=== PATIENT | female | born 1980 | race Caucasian/White ===

== ENCOUNTER 2025-05-27 18:21 | Emergency (ER) | payer BC, SELFPAY ==
--- OUTSIDE RECORDS SUMMARY | 2023-07-17 04:05 | XMS_ITS | Continuity of Care Document ---
Author Organization [facility] Address [address] [address] [place] [address] Phone Care Team Providers Care Speech And Drama Teacher Name Role Phone Jen Hyatt MD Unavailable Unavailable Allergies, Adverse Reactions, Alerts Substance Reaction Status Criticality amoxicillin Active No Information Medications Medication Instructions Dosage Effective Dates (start - stop) Status Comments buspirone 10 mg tablet take 1 tablet by oral route 2 times every day 10 MG - Active doxycycline hyclate 50 mg tablet take 1 tablet by oral route 2 times every day 50 MG - Active lorazepam 1 mg tablet take 1 tablet by o ral route 3 times every day as needed 1 MG - Active spironolactone 50 mg tablet take 1 tablet by oral route every day 50 MG - Active Synthroid 100 mcg tablet take 1 tablet by oral route every day 100 MCG - Active liothyronine 5 mcg tablet take 1 tablet by oral route every day 5 MCG - Active lamotrigine 150 mg tablet take 1 tablet by oral route 2 times every day 150 MG - Active trazodone 150 mg tablet take 1 tablet by oral route every day 150 MG - Active Dulcolax (bisacodyl) 5 mg tablet,delayed release take 1 tablet by oral route every day as needed 5 MG - Active Procedures Procedure Date Ugi Endo; W/bx 1/mx Level Iv-surg Path Gross/micro 23 New Level 4 Advance Directives Directive Yes / No Effective Date File Name No Information Encounters Encounter Description Practice Location Reason(s) For Visit Diagnoses Date Provider Providers Copied on Encounter [facility], [address] [address], [place], [place], [id number], [place] tel:[phone] [facility] No Information 4 Olena Li. [address] [facility] [address], [place], [place], [id number] , [place]. tel: [phone] [facility], [address] [address], [place], [place], [id number], [place] tel:[phone] [facility] GI Symptoms or Concerns (chief complaint) HeartburnOther specified abnormal immunological findings in serumUnspecified abdominal painHeartburnHeartb urnHeartburn 3 Damien Queen. [address], [facility] [address], [place], [place], [address] , [place]. tel: [phone] Referring Provider: Referral Self, USE FOR SELF REFERRALS. New Level 4 [facility], [address] [address], [place], [place], [id number], [place] tel:[phone] [facility] GI Symptoms or Concerns (chief complaint) HeartburnNauseaAbdo aleshia bloatingElevated anti-tissue transglutaminase (tTG) IgA level 3 Olena Li. [address], [facility] [address], [place], [place], [address] , [place]. tel: [phone] Referring Provider: Referral Self, USE FOR SELF REFERRALS. [facility], [address] [address], [place], [place], [address], [place] tel:[phone] [facility] GI Symptoms or Concerns (chief complaint) No Information 3 Olena Li. [address], [place], [place], [address] , [place]. tel: [phone] [facility], [address] [address], [place], [place], [address], [place] tel:[phone] [facility] No Information 3 Yasmany Khan. [address], [facility] [address], [facility] [place], [id number] , [place]. tel: [phone] Family History Family Member Type Diagnosis Age At Onset Mother Problem Hypertension Father Problem Alive and well Father Problem Hypercholesterolemia Father Problem Cardio pulmonary, heart issu es Mother Problem Heart issues Mother Problem (finding) Diverticular disease Mother Problem (finding) Alcoholism Mother Problem Alive and well Immunizations Vaccine Date Status Comments SARS-COV-2 (COVID-19) vaccin e, mRNA, spike protein, LNP, bivalent, preservative free, 30 mcg/0.3 mL dose, manpreet-sucrose formulation administered Note: [facility] bi-direct ional interface ; Source: Other Registry Afluria Qd administered Note: [facility] bi-directional interface ; Source: Other Registry SARS-COV-2 (COVID-19) vaccin e, mRNA, spike protein, LNP, preservative free, 30 mcg/0.3mL dose administered Note: [facility] bi-direct ional interface ; Source: Other Registry SARS-COV-2 (COVID-19) vaccin e, mRNA, spike protein, LNP, preservative free, 100 mcg/0.5mL dose or 50 mcg/0.25mL dose administered Note: [facility] bi -directional interface ; Source: Other Registry SARS-COV-2 (COVID-19) vaccin e, mRNA, spike protein, LNP, preservative free, 100 mcg/0.5mL dose or 50 mcg/0.25mL dose administered Note: [facility] bi -directional interface ; Source: Other Registry Afluria Qd administered Note: [facility] bi-directional interface ; Source: Other Registry Afluria Qd administered Note: [facility] bi-directional interface ; Source: Other Registry influenza virus vaccine, unspecified formulation administered Note: [facility] bi-di rectional interface ; Source: Other Registry Afluria Qd administered Note: [facility] bi-directional interface ; Source: Other Registry tetanus toxoid, reduced diphtheria toxoid, and acellular pertussis vaccine, adsorbed administered Note: [facility] b i-directional interface ; Source: Other Registry Influenza, injectable,quadrivalent, preservative free, pediatric administered Note: [facility] bi-directional interface ; Source: Other Registry tetanus toxoid, reduced diphtheria toxoid, and acellular pertussis vaccine, adsorbed administered Note: [facility] b i-directional interface ; Source: Other Registry Influenza, seasonal, injectable administe red Note: [facility] bi- directional interface ; Source: Other Registry influenza virus vaccine, unspecified formulation administered Note: [facility] bi-di rectional interface ; Source: Other Registry influenza virus vaccine, unspecified formulation administered Note: [facility] bi-di rectional interface ; Source: Other Registry Novel [id number], all formulations administered Note: [facility] bi-direct ional interface ; Source: Other Registry Influenza, seasonal, injecta ble, preservative free administered Note: [facility] bi-direct ional interface ; Source: Other Registry measles, mumps and rubella v irus vaccine administered Note: [facility] bi-direct ional interface ; Source: Other Registry diphtheria, tetanus toxoids and pertussis vaccine administered Note: [facility] bi-direct ional interface ; Source: Other Registry diphtheria, tetanus toxoids and pertussis vaccine administered Note: [facility] bi-direct ional interface ; Source: Other Registry measles, mumps and rubella v irus vaccine administered Note: [facility] bi-direct ional interface ; Source: Other Registry diphtheria, tetanus toxoids and pertussis vaccine administered Note: [facility] bi-direct ional interface ; Source: Other Registry diphtheria, tetanus toxoids and pertussis vaccine administered Note: [facility] bi-direct ional interface ; Source: Other Registry diphtheria, tetanus toxoids and pertussis vaccine administered Note: [facility] bi-direct ional interface ; Source: Other Registry Payers Payer name Insurance type Covered democrat ID Authoriza tion(s) [facility] [id number] Social History Type Description Quantity Date Captured Comments Sex Female Smoking Status No Information Chief Complaint And Reason For Visit No Information Reason For Referral Reason For Referral No Information History Of Present Illness Encounter Date Complaint History Of Prese nt Illness GI Symptoms or Concerns GI Symptoms or Concerns This is a 42-year-old female who presents to GI virtual clinic for evaluation of heartburn, reflux, and abdominal bloating.Prior to our visit, I confirmed the patient is in a private location and obtained her consent to proceed with the visit.The patient relates that for the past 3-4 months, she has been dealing with progressive reflux, nonresponsive to emwg-jct-xsyrqtg reflux medications. This has started to occur regardless of what she eats, though certain foods such as spicy and acidic foods seem to be worse than others. She has also been dealing with progressive abdominal bloating and overall fatigue and dizziness along the same time period. She does take stool softeners to help with bowel movements in order to have a bowel movement daily which are nonmelenic and nonbloody. 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 Our plan based on our discussion today is as follows:-We will schedule an upper endoscopy with biopsies of your esophagus, stomach and small bowel for your symptoms.-We can start Omeprazole 40mg daily after your procedure for 60 days to see how this impacts your symptoms.-Return to GI clinic in 3 months or sooner as needed. Related to Heartburn Gastroesophageal Reflux Disease Related to Heartburn Assessments Type Assessment Date No Information Patient Care Teams Name Effective Dates (start - stop) Status Members No Information
--- OUTSIDE RECORDS SUMMARY | 2025-05-27 18:23 | XMS_ITS | Encounter Summary ---
Author Organization [employer] [facility] [facility] Address [address], [place] [address] Care Team Providers Care Dimensional Engineer Name Role Phone Unassigned, Provider Primary Care Provider Unava ilable Encounter Details DateTypeDepartmentCare Team (Latest Contact Info)Euxyygbsfuo65/10/2025E-Visit [address] [facility]. [place], [place] [id number] Gena Enriquez [facility] [address] [place], [place] [phone] Social History Tobacco UseTypesPacks/DayYears UsedDateSmoking Tobacco: NeverSmokeless Tobacco: NeverAlcohol UseStandard Drinks/WeekCommentsYes1 (1 standard drink = 0.6 oz pure alcohol)1 drink, once every couple of weeksCommentsNoSex and Gender InformationValueDate RecordedSex Assigned at BirthNot on fileLegal SexFemale 03/12/2012 4:55 AM CDTGender IdentityNot on fileSexual OrientationNot on file OccupationIndustryJob Start DateJob End DateConsultantNot on fileNot on fileNot on filedocumented as of this encounter Plan of Treatment Not on file documented as of this encounter Visit Diagnoses Not on filedocumented in this encounter Care Teams Team MemberRelationshipSpecialtyStart DateEnd Date Unassigned, Provider [address] [place] [id number] PCP - General09/07/22documented as of this encounter
--- OUTSIDE RECORDS SUMMARY | 2025-05-27 18:23 | XMS_ITS | Data Portability ---
Author Organization [place] [facility] [place] Address [address] [place] [address] Care Team Providers Care Shoe Stamper Name Role Phone ABRAHAMKISHA SOLORZANO Primary Care Provider Assessment Encounter Date Assessment Date Assessment LastModified by Organization Details LastModified Time 04/28/2024 04/28/2024 Time spent reviewing the patient s medical record, diagnostic studies, performing a focused history and physical exam, educating the patient regarding the natural history of disease as it pertains to the patient, discussing treatment options and alternatives, medical decision making, and chartin-39 minutes. [email or web address] Not available 04/28/2024 15:06:19 Plan of Treatment Reminders Order DateSubmit DateProviderLast Modified ByOrganization DetailsLastio Modified TimeDetailsAppointmentsNone recorded.LabNone recorded.ReferralNone recorded. ProceduresNone recorded.SurgeriesNone recorded.ImagingNone recorded.Medication OrdersNone recorded. Patient TargetsNo targets recorded. Patient Instructions Encounter Date Encounter Id Patient Instructions Last Modified By Organization Details Last Modified Time 04/28/2024 [id number] PROCEDURE RECOMM ENDATIONS 1. Endovenous radiofrequency ablation of the left great saphenous vein (53049) 2. Ultrasound guided foam sclerotherapy of the residual incompetent tributaries and varicosities greater than 3.0mm of the left leg (07323, 18879) - 2 sessions This patient has multiple areas of tributary veins that need treatment (4 tributaries measured/leg), which requires more than one session of sclerotherapy, as documented above in the procedure recommendations.cjakcmz3Lfe zxyhhnnze47/26/2024 15:08:09 Reason for Referral None Reported. Procedures Surgical History Date Name Laterality Status Provider Name and Address Organization Details Recorded Time 03/30/2025 PVC - Ultrasound Guided Scleroth erapy completedChristracie [facility] Rbmxnai6303/30/2025 11:16:22 03/02/2025PVC - EVRFA: Single VeincompletJuan Hernandez MD [address], [place], [address], [facility] Fmtfjms5303/02/2025 11:15:54ColonoscopycompletJuan Hernandez MD [address], [place], [address], [facility] Uigqzum9103/17/2024 13:16:01HysterectomycompletedElizabeedward Hernandez MD [address], [place], [address], [facility] Lehzmpj4603/17/2024 13:16:01Plastic surgerycomTony Hernandez MD [address], [place], [address], [facility] Xeckmku7703/17/2024 13:16:01Hand SurgerycomTony Hernandez MD [address], [place], [address], [facility] Zvbpeqp9203/17/2024 13:16:01 Imaging Results None recorded. Procedure Notes None recorded. Medical Equipment None Reported. Allergies Allergen ID Allergen Name Allergen Category Reaction Reaction Severity Criticality Documentation Date Start Date Code Code System Note Provider Name and Address Organization Details Recorded Time 16931 amoxicillin medication Not available Not available Not /30/3730209LwHhclBdkhtmtfn Hoven null, [facility] Rwivdqd9503/02/2025 10:48:31 Medications Name Sig Start Date Stop Date Status Note LastModified by Organization Details LastModified Time cyclobenzaprine 10 mg tablet TAKE 1 TABLET BY AL UT AT BEDTIME NEEDED.* activeNot AvailableNot AvailableNot Availablelamotrigine 150 mg tabletTAKE 1 TABLET TWICE A DAYactiveNot AvailableNot AvailableNot Availableclindamycin HCl 300 mg capsuleTAKE FIRST DOSE TONIGHT THEN TAKE ONE CAPSULE BY MOUTH EVERY 8 HOURS UNTIL GONE03/16/2024ompletedNot AvailableNot AvailableNot Available hydrocodone 5 mg-acetaminophen 325 mg tabletTAKE ONE TO TWO TABLETS BY MOUTH EVERY 4 TO 6 HOURS NEEDED FOR PAIN TAKE WITH FOOD TO AVOID NAUSEA MAX DAILY DOSE OF 8 ESKMLWR0103/16/2024ompletedNot AvailableNot AvailableNot Available tretinoin 0.025 % topical creamAPPLY A THIN LAYER TO FACE AT NIGHT, APPLY ON DRY SKIN AND FOLLOW WITH MOISTURIZER, BEGIN WITH 2-3 NIGHTS PER WEEK AND INCREASE TOLERATEDactiveNot AvailableNot AvailableNot Availablemethylphenidate 20 mg tabletTAKE ONE TABLET BY MOUTH TWICE A DAY FOR 30 DAYS.activeNot AvailableNot AvailableNot Availablemeloxicam 15 mg tabletTAKE ONE TABLET BY MOUTH ONE TIME DAILY WITH FOOD*activeNot AvailableNot AvailableNot Availablemethylphenidate 5 mg pqkysm3303/16/2024ompletedNot AvailableNot AvailableNot AvailableSynthroid 100 mcg tabletTAKE 1 TABLET DAILYactiveNot AvailableNot AvailableNot Available spironolactone 100 mg tabletTAKE 1 TABLET DAILYactiveNot AvailableNot Available Not Availableestradiol 0.1 mg/24 hr semiweekly transdermal patchPlace 1 patch onto the skin twice a week*activeNot AvailableNot AvailableNot Available estradiol 0.05 mg/24 hr semiweekly transdermal patchApply 1 patch onto the skin twice a week*activeNot AvailableNot AvailableNot Availableomeprazole 40 mg capsule,delayed releaseTAKE ONE CAPSULE BY MOUTH EVERY DAY BEFORE A MEAL 03/16/2024ompletedNot AvailableNot AvailableNot Availableliothyronine 5 mcg tabletTake 2 tablets by MOUTH 1 time per day*activeNot AvailableNot AvailableNot Availabledoxycycline monohydrate 50 mg capsuleactiveNot AvailableNot Available Not Availablemethocarbamol 750 mg tabletTAKE 1 TABLET by mouth 3 TIMES DAILY.* activeNot AvailableNot AvailableNot Availabletrazodone 150 mg tabletTAKE 2 TABLETS AT BEDTIMEactiveNot AvailableNot AvailableNot Availablebuspirone 10 mg tabletTAKE 2 TABLETS BY MOUTH 2 TIMES A DAY*activeNot AvailableNot AvailableNot Availableprogesterone micronized 200 mg capsuleTAKE ONE CAPSULE BY MOUTH ONE TIME DAILY*activeNot AvailableNot AvailableNot Availableclobetasol 0.05 % topical ointmentAPPLY TWICE DAILY TO SPOTS FOR TWO WEEKS. TAKE ONE WEEK BREAK. REPEAT NEEDED FOR FLARES.activeNot AvailableNot AvailableNot Available methylprednisolone 4 mg tablets in a dose packFOLLOW PACKAGE INSTRUCTIONS. TAKE 6 TABLETS BY MOUTH ON DAY 1, 5 TABS ON DAY 2, 4 TABS ON DAY 3, 3 TABS ON DAY 4, 2 TABS ON DAY 5, 1 TAB ON DAY 6.*activeNot AvailableNot AvailableNot Available propranolol 20 mg tabletTAKE 1-3 TABLETS THREE TIMES DAILY NEEDED FOR ANXIETY. MONITOR BLOOD PRESSURE PERIODICALLY, HOLDDOSE IF LESS THAN 90/60active Not AvailableNot AvailableNot Availableondansetron 4 mg disintegrating tablet DISSOLVE ONE TABLET UNDER THE TONGUE EVERY 8 HOURS03/16/2024ompletedNot AvailableNot AvailableNot Availabletobramycin 0.3 %-dexamethasone 0.1 % eye drops,suspensionINSTILL 1 DROP INTO BOTH EYES THREE TIMES DAILY FOR 1 WEEK* activeNot AvailableNot AvailableNot AvailableLaxative (bisacodyl) 5 mg tablet,delayed releaseTAKE 2 DAYS PRIOR TO EXAM TAKE 2 TABLETS AT 4PM. ONE DAY PRIOR TO EXAM TAKE 2 TABLETS AT 4PMactiveNot AvailableNot AvailableNot Available GaviLyte-G 236 gram-22.74 gram-6.74 gram-5.86 gram oral solutionTWO DAYS BEFORE EXAM, FILL 1ST CONTAINER, SHAKE UNTIL MIXED. AT 5PM DRINK 8OZ GLASS EVERY 10-15 MINUTES UNTIL 1/2 OF 1ST CONTAINER IS EMPTY.03/16/2024ompletedNot AvailableNot AvailableNot Available Vitals None Recorded Social History Question Answer Notes LastModified by Organization D etails LastModified Time Tobacco Smoking Status Never Smoker Marely Hernandez MD [address] [place], [address], [place] [facility] Nohjvmt4503/17/2024 13:14:52How Many Times Per Week Do You Exercise?3-4 Times Per Nfufiunpia9Dnnhjbcpbxz not mskckcolv02/15/2024 Sex: Unknown Functional Status Question Answer Note LastModified by Organization D etails LastModified Time What is your level of alcohol consumption? 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 Family History Nothing Reported. Medical History Condition Response Anxiety Disorder Y Hypothyroidism Y High Cholesterol Y Gynecological History Statement/Question Response How many childrens do you have? 2 Number of Miscarriages 0 Number of Pregnancies 2 Are you or planning to become p regnant? N Are you ? N Obstetrics History GPAL:G 0 P 0 0 0 0 Past Encounters Encounter ID Performer Location Encounter Start Date Encounter Closed Date Diagnosis/Indication Diagnosis SNOMED-CT Code Diagnosis ICD10 Code Diagnosis IMO Codes Diagnosis Note [id number] Marely Hernandez MD [address] [address] 03/17/2024 12:37:09 03/26/2024 04:04:54 Pain co-occurrent and due to varicose veins of left leg [id number] I83.812 DUPLEX ULTRASOUND FINDINGS: Spectral doppler analysis shows abnormal reflux (>500msec) in the left great saphenous vein and multiple left tributary veins. The deep veins are patent with normal compressibility and augmentation. Left deep venous insufficiency is absent. There is adequate venous capacity of the deep system. There is no significant tortuosity or aneurysm of the refluxing saphenousveins which would impede catheter advancement. [id number] Hernandez MD[address] [place],[address] [address] 03/17/2024 12:37:181 11:53:26Pain co-occurrent and due to varicose veins of left [id number] DUPLEX ULTRASOUND FINDINGS: Spectral doppler analysis shows abnormal reflux (>500msec) in the left great saphenous vein and multiple left tributary veins. The deep veins are patent with normal compressibility and augmentation. Left deep venous insufficiency is absent. There is adequate venous capacity of the deep system. There is no significant tortuosity or aneurysm of the refluxing saphenousveins which would impede catheter advancement. ASSESSMENT: 1)Left lower extremity superficial chronic venous insufficiency of the great saphenous vein and tributary veins with pain and inflammation affecting activities of daily living. CEAP 3 VCSS 8 2) Normal deep venous system without DVT 3) The patient has progression of symptoms despite conservative measures including: avoiding long periods of sitting/standing, regular daily exercise including moderate walking, weight control, OTC analgesics and leg elevation. PLAN: Begin 6 week trial of conservative therapy with the addition of OTC analgesics and GCS 20-30mm Hg. GCS Rx provided today. If symptoms persist, proceed with the treatment plan including the following:endovenous radiofrequency ablation of saphenous vein(s), ultrasound guided foam sclerotherapy of tributary veins. [id number] Montano [address] [place] [address] 04/28/2024 15:01:3812/08/2023 04:08:39Pain co-occurrent and due to varicose veins of left [id number] DUPLEX ULTRASOUND FINDINGS: Spectral doppler analysis shows abnormal reflux (>500msec) in the left GSV and multiple left tributary veins. The deep veins are patent with normal compressibility and augmentation. Deep vein reflux in the left proximal FV. There is no significant tortuosity or aneurysm of the refluxing saphenous veins which would impede catheter advancement. [id number] Montano [address] [place] [address] 04/28/2024 15:01:4412/07/2023 23:09:46Pain co-occurrent and due to varicose veins of left [id number] DUPLEX ULTRASOUND FINDINGS: Spectral doppler analysis shows abnormal reflux (>500msec) in the left GSV and multiple left tributary veins. The deep veins are patent with normal compressibility and augmentation. Deep vein reflux in the left proximal FV. There is no significant tortuosity or aneurysm of the refluxing saphenous veins which would impede catheter advancement. ASSESSMENT:1)Left lower extremity superficial chronic venous insufficiency of the GSV and tributary veins withpain and inflammation affecting activities of daily living. CEAP 3, VCSS 92)Right lower extremity asymptomatic and not examined today.3) Normal deep venous system without DVT4) The patient has progression of symptoms despite conservative measures including: use of GCS class II or higher for more than 6 weeks, avoiding long periods of sitting/standing, regular daily exercise including moderate walking, weight control, OTC analgesics and leg elevation. PLAN:1) Proceed with the treatment plan detailed below.[id number] Hernandez MDColerain [address] [place] [address] 03/02/2025 10:38:34003/02/2025 12:17:21Pain co-occurrent and due to varicose veins of left [id number] [id number] Fragosoadvent[facility] [address] [place] [address] 03/30/2025 10:57:5503/30/2025 14:30:33Pain co-occurrent and due to varicose veins of left [id number] [id number] Health Concerns Section Related Observation LastModified by Organization Detai ls LastModified Time None Recorded Concern Status LastModified by Organization Details LastModified Time None Recorded Advance Directives Directive None Recorded Payers Insurance Date Sequence Insurance Name Policy Number Policy Gomes Covered Member ID Gomes Member ID Guarantor Name 03/27/2025 1 [place] [id number] Yudy bae [id number] Yudy Matos Notes Date Note Type Note Provider Name and Address Organization Details Recorded Time 03/17/20 24 text/htm l PVC (Q4U) InitialReported by PatientHPIFor i have had symptoms, patient reportsmore than 1 year. For have you ever experienced any of the following symptoms?, patient reportspain,aching,tired legs/fatigue,heaviness,burnin g,numbness/tingling,swelling, difficulty healing wounds/ulcers,spider veins, andbulging veins. For when do the symptoms occur?, patient reportssittingandstanding up. For what activities of daily living do the symptoms affect?, patient reportswork. For please select the location of your concern, patient reportsleft leg: ankle/foot. For what relieves your symptoms?, patient reportsleg elevation. For do you wear compression stockings to relieve your symptoms?, patient reportsyes. For how long have you worn compression stockings?, patient reportsmore than 3 months. For have you ever been prescribed medical grade compression stockings?, patient reportsno. For indicate which prior vein treatments you have had, patient reportsother___. For have you ever been diagnosed with the following?, patient reportsnone. Marely Hernandez MD [address] [place], [address], [facility] 03/25/2024 10:05:39 03/17/2024 text/html The patient is a 43yo female who presents with complaints of Left lower extremity varicose veins and increasing symptoms for the past more than 1 year. The patient denies previous treatment for chronic venous disease. Symptoms include: pain, aching, tired legs, heavy legs, fatigue, itching, burning, recurring swelling, spider veins, surface veins, difficulty healing wounds, numbness and tingling. There is no history of DVT, SVT, ulceration, cellulitis or phleborrhagia. Symptom location: Left, ankle/leg, Symptom severity:7/10; moderately severe Symptoms occur with: prolonged sitting and standing, and are worse later in the day. ADLs affected by symptoms: -Work: Needs to take frequent breaks to walk and/or elevate legs. Conservative measures implemented without relief of symptoms: -avoidance of prolonged periods of sitting or standing, -regular exercise including moderate daily walking, -leg elevation, -weight control, -GCS 20-30 mmHg OTC only Rx provided today. Cyanoacrylate Adhesive Ablation screening: -Autoimmune conditions: Yes Marely Hernandez MD [address] [place], [address], [facility] Lwacqqp1803/25/2024 10:04:16106/28/2023text/html The patient is a 43yo female who presents with complaints of Left lower extremity varicose veins and increasing symptoms for the past more than 1 year. The patient denies previous treatment for chronic venous disease. The patient presents after a 6 week trial of conservative therapy including: daily exercise including moderate walking, weight control, leg elevation, OTC analgesic (eg NSAID) use prn and Rx GCS. Thepatient reports minimal relief of symptoms with these measures. Symptoms include: pain, aching, tired legs, heavy legs, fatigue, itching, burning, recurring swelling, spider veins, surface veins, difficulty healing wounds, numbness and tingling. There is no history of DVT, SVT, ulceration, cellulitis or phleborrhagia. Symptom location: Left, ankle/leg,Symptom severity:7/10; moderately severe Symptoms occur with: prolonged sitting and standing, and are worse later in the day. ADLs affected by symptoms:-Work: Needs to take frequent breaks to walk and/or elevate legs. Conservative measures implemented without relief of symptoms:-avoidance of prolonged periods of sitting or standing,-regular exercise including moderate daily walking,-leg elevation,-weight control,-GCS 20-30 mmHg more than 6 wks Rx provided at consultation. Cyanoacrylate Adhesive Ablation screening:-Autoimmune conditions: Yes Marely Hernandez MD [address], [place], [address], [place] [facility] Jtihcyf7604/28/2024 16:09:20 OBGyn Episode No OBEpisode recorded.
--- OUTSIDE RECORDS SUMMARY | 2025-05-27 18:23 | XMS_ITS | Clinical Summary ---
Author Organization [facility] Address [address], [place] [address] Care Team Providers Care Carriage Feeder Name Role Phone Unassigned, Provider Primary Care Provider Unava ilable Source Comments You are receiving this document as you are listed as the primary care provider,follow-up provider, or the patient has been referred to you for consultation.This is in compliance with the Medicare andMedicaid EHR Incentive Program,which states Providers who transition their patient to another setting of careor provider of care or refers their patient to another provider of care shouldprovide summary care record for each transition of care or referral. [employer] Allergies Active AllergyReactionsCriticalityNoted LexhCncrcbxdItpaiuofcquNykc66/19/2003 PN: LW Reaction: Rash, Generalized Medications MedicationSigDispense QuantityRefillsLast FilledStart DateEnd DateStatus Multiple Vitamins-Minerals (MULTIVITAMIN OR) Take 1 tablet by mouth daily (every 24 hours).08/19/2008ctive busPIRone (BUSPAR) 10 MG tablet Take 1 Tablet by mouth two times a day. 180 Tablet ctive lamoTRIgine (LAMICTAL) 200 MG tablet Take 1 Tablet by mouth daily. 90 Tablet ctive levothyroxine (SYNTHROID) 100 MCG tablet Indications:Acquired hypothyroidism (HRC),Thyroid nodule (HRC)Take 1 tab daily. 90 Tablet 5Active liothyronine (CYTOMEL) 5 MCG tablet Indications:Acquired hypothyroidism (HRC),Thyroid nodule (HRC)Take 2 Tablets (10 mcg) by mouth daily. 180 Tablet 310/10/2025Active Active Problems ProblemNoted DateDiagnosed DateThyroid mlcdsw601Bipolar disorder 1Depression, major, single episode, bxendiup43/15/2013 Overview (01/05/2016): Started with counseling; Zoloft helpful; tried Celexa which was ineffective Pancreatic mass07/31/2011nxiety state04/14/2009 Overview (01/23/2017): Anxiety NOS Zfkfrndf93/12/2009 Overview (01/23/2017): Insomnia NOS Sqxfsdxezvtbeu40/12/2009 Overview (01/23/2017): Hypothyroidism On Replacement Resolved Problems ProblemNoted DateDiagnosed DateResolved DateMolluscum byojpjbtdgc18/27/2013 09/21/2019Supervision of normal first qtlhqvvlo98 Encounters DateTypeDepartmentCare FhqjQwodttcmsll92/10/2025E-Visit [place] [address] [place] [address]. [place] [address] Gena Enriquez MBBS 03/12/2025Notes/Orders [place] [address] [place] [address]. [place] [address] Gena Enriquez MBBS Acquired hypothyroidism (HRC); Thyroid nodule (HRC)03/06/2025 8:40 AM CDTLab Visit [facility] [address] [place] [address] Acquired hypothyroidism (HRC); Thyroid nodule (HRC); Bipolar affective disorder, remission status unspecified (HRC)03/01/2025 10:15 AM CDTTelemedicine [place] [id number] [facility] [address] [place] [address]. [place] [address] Gena Enriquez MBBS Acquired hypothyroidism (HRC) (Primary Dx); Thyroid nodule (HRC); Bipolar affective disorder, remission status unspecified (HRC)from Last 3 Months Immunizations ImmunizationAdministration DatesNext JbnUBR9810/21/1984,03/14/1981,09/01/1980, 03/12/1980,1979Flu Vac (3+ yrs)03/24/2012Flu Vac Preserv Free (3+yrs) 03/23/2012,03/17/2010,04/18/2009H1n1 Miv Sanofi 3+ Yr (Injected)06/22/2009HepA Adult (19+ yrs)12/23/1997,06/11/1997Influenza IIV4 (Quadrivalent) 0.5mL (52649) 04/01/2015,04/17/2013Influenza, Unspecified Jrmftvxbfti61/17/2017,03/05/2011MMR 10/15/1991,12/01/1980OPV, Trivalent (Orimune or tOPV)10/21/1984,03/14/1981, 03/12/1980,1979TDAP (BOOSTRIX)04/25/2012Td106/11/2003,10/27/1993Tdap 06/03/2011 Family History Medical HistoryRelationNameCommentsHigh CholesterolBirth FatherDepression Maternal AuntAnxietyMaternal GrandfatherCancer, BreastMaternal GrandmotherHigh CholesterolMaternal GrandmotherAnesthesia ReactionNegative Family History Bleeding DisorderNegative Family HistoryClotting DisorderNegative Family History RelationNameStatusCommentsBirth FatherAliveBirth MotherAliveMaternal Aunt Maternal GrandfatherMaternal GrandmotherSister 1AliveSister 2Alive Social History Tobacco UseTypesPacks/DayYears UsedDateSmoking Tobacco: NeverSmokeless Tobacco: NeverAlcohol UseStandard Drinks/WeekCommentsYes1 (1 standard drink = 0.6 oz pure alcohol)1 drink, once every couple of weeksCommentsNoSex and Gender InformationValueDate RecordedSex Assigned at BirthNot on fileLegal SexFemale 03/12/2012 4:55 AM CDTGender IdentityNot on fileSexual OrientationNot on file OccupationIndustryJob Start DateJob End DateConsultantNot on fileNot on fileNot on file Last Filed Vital Signs Vital SignReadingTime TakenCommentsBlood Tkzeumnp997/8806 2:00 PM CDT Psgbm806711/09/2019 2:00 PM HWPRpdpqwwniuq85.8 ??C (98.3 ??F)04/05/2017 3:02 PM CDTRespiratory Clkm192911/09/2019 2:00 PM CDTOxygen Qwmagpydfi08%11/09/2019 2:00 PM CDTInhaled Oxygen Concentration--Vzgyry34.6 kg (160 lb)11/09/2019 1:07 PM CDT Xqhnnt501.2 cm (5' 7)11/09/2019 1:07 PM CDTBody Mass Index25.0611/09/2019 1:07 PM CDT Plan of Treatment Health MaintenanceDue DateLast DoneCommentsColon Cancer Screening Plan Due 1979HepB Vaccine (1)08/29/1998Adult Preventive Visit Cervical Cancer Sifuohpjf97, 12/03/2016, 11/27/2012, Additional history pvoiqvMhwshfpzayn57, 05/21/2018, 12/03/2016, Additional history existsDTaP/Tdap/Td Vaccine (9 - Tdap)01/25/2025 01/25/2015, 04/25/2012, 04/25/2012, Additional history existsCOVID-19 Vaccine ( season)/, 02/15/2022, 04/18/2021, Additional history existsInfluenza Vaccine (#1)502/, 02/15/2022, 04/29/2020, Additional history puowdwPpulnkotu45/18/202604/, 05/30/2021 Zoster/Shingles Vaccine (1 of 2)08/29/2029IPV (Polio) VaccineCompleted 10/21/1984, 03/14/1981, 03/12/1980, Additional history existsHepA Vaccine Sdfmccuue52/23/1998, 06/11/1997HIV Screening (Preventive Services)Completed 11/27/2012, 10/02/2006Hep C Screening (Preventive Services)Yowhzftph52/27/2013 HPV Vaccine (No Doses Required)CompletedHib VaccineAged OutNo longer eligible based on patient's age to complete this topicMCV4 VaccineAged OutNo longer eligible based on patient's age to complete this topicMeningococcal B Vaccine Aged OutNo longer eligible based on patient's age to complete this topic Pneumococcal VaccineAged OutNo longer eligible based on patient's age to complete this topic Procedures Procedure NamePriorityDate/TimeAssociated DiagnosisCommentsTESTOSTERONE, FEMALE OR OXTJFDHADhflvbv43/04/2025 9:03 AM CDT Acquired hypothyroidism (HRC) Thyroid nodule (HRC) Bipolar affective disorder, remission status unspecified (HRC) CKAUTMGYMMorjfjs67/04/2025 9:03 AM CDT Acquired hypothyroidism (HRC) Thyroid nodule (HRC) Bipolar affective disorder, remission status unspecified (HRC) RWMZuuyhyi62/04/2025 9:03 AM CDT Acquired hypothyroidism (HRC) Thyroid nodule (HRC) Bipolar affective disorder, remission status unspecified (HRC) T3, DSRQYawnvae25/04/2025 9:03 AM CDT Acquired hypothyroidism (HRC) Thyroid nodule (HRC) Bipolar affective disorder, remission status unspecified (HRC) FREE Z4Urrurtt04/04/2025 9:03 AM CDT Acquired hypothyroidism (HRC) Thyroid nodule (HRC) Bipolar affective disorder, remission status unspecified (HRC) TSH, LXTQJEBEIMudjxlh16/04/2025 9:03 AM CDT Acquired hypothyroidism (HRC) Thyroid nodule (HRC) Bipolar affective disorder, remission status unspecified (HRC) LIPID PANEL & DIRECT LDL (IF NEEDED)Xtohzis8209/24/2019 9:41 AM CDT Routine physical examination ANATOMICAL PATH LIQUID FHBCDYzyfixa28/03/2017 8:41 AM CDT HIV CJYAHACIAraiaff07/27/2013 11:13 AM CDT Routine screening for STI (sexually transmitted infection) HEPATITIS C ANTIBODY, WITH REFLEX (ANTI-HCV)Umdklya9911/27/2012 11:13 AM CDT Routine screening for STI (sexually transmitted infection) from Last 3 Months or Most Recently Relevant to Health Maintenance Results * (ABNORMAL) Testosterone, female or children (03/06/2025 9:03 AM CDT)Component ValueRef RangeTest MethodAnalysis TimePerformed AtPathologist Signature Testosterone Female or Children8(L)9 - 55 ng/dL03/12/2025 10:42 AM CDTARUP LABORATORIESComment: REFERENCE INTERVAL: Testosterone by Sack Lifter Females Premenopausal ??9-55 ng/dL Postmenopausal 5-32 ng/dL INTERPRETIVE INFORMATION: Testosterone by Sack Lifter Free or bioavailable testosterone measurements may provide supportive information. For individuals on testosterone-suppressing hormone therapies (e.g., antiandrogens or estrogens), refer to cisgender female reference intervals. For a complete set of all established reference intervals, refer to ltd[employer]/Tests/Pub/1404127. This test was developed and its performance characteristics determined by [facility]. It has not been cleared or approved by the US Food and Drug Administration. This test was performed in a CLIA certified laboratory and is intended for clinical purposes. Performed By: [facility] [address] [place] [address] Cloth Stock Sorter: Edgar Quiles MD, PhD CLIA Number: [id number] Specimen (Source)Anatomical Location / LateralityCollection Method / Volume Collection TimeReceived TimeBloodVenipuncture / Aebmpiz7403/06/2025 9:03 AM CDT 03/06/2025 9:03 AM CDT Narrative Authorizing ProviderResult TypeResult StatusGena Enriquez BSLAB_1Final ResultPerforming OrganizationAddressCity/State/ZIP CodePhone Number [facility] CLIA: [id number] [address] [place] [address], [facility] * Free T3, Serum (03/06/2025 9:03 AM CDT)ComponentValueRef RangeTest Method Analysis TimePerformed AtPathologist SignatureT3, Free2.41.7 - 3.7 pg/mL 03/06/2025 3:[address] [facility] LABORATORYSpecimen (Source)Anatomical Location / LateralityCollection Method / VolumeCollection TimeReceived Time BloodVenipuncture / Qdcqbwa0303/06/2025 9:03 AM CDT1 9:03 AM CDT Narrative Authorizing ProviderResult TypeResult StatusGena Enriquez MBBSLAB_1Final ResultPerforming OrganizationAddressCity/State/ZIP CodePhone Number [facility] CLIA: [id number] [facility] * TSH (03/06/2025 9:03 AM CDT)ComponentValueRef RangeTest MethodAnalysis Time Performed AtPathologist SignatureTSH, Sensitive1.310.30 - 4.50 uIU/mL 03/06/2025 3:[address] [facility] LABORATORYSpecimen (Source)Anatomical Location / LateralityCollection Method / VolumeCollection TimeReceived Time BloodVenipuncture / Prgxjvp2303/06/2025 9:03 AM CDT1 9:03 AM CDT Narrative Authorizing ProviderResult TypeResult StatusGena Enriquez MBBSLAB_1Final ResultPerforming OrganizationAddressty/State/ZIP CodePhone Number [facility] CLIA: [id number] [address] * Free T4 (03/06/2025 9:03 AM CDT)ComponentValueRef RangeTest MethodAnalysis TimePerformed AtPathologist SignatureT4, Free0.90.7 - 1.5 ng/dL03/06/2025 3:[address] [facility] LABORATORYSpecimen (Source)Anatomical Location / LateralityCollection Method / VolumeCollection TimeReceived TimeBlood Venipuncture / Riicfss1603/06/2025 9:03 AM CDT1 9:03 AM CDT Narrative Authorizing ProviderResult TypeResult StatusGena Enriquez MBBSLAB_1Final ResultPerforming OrganizationAddressCity/State/ZIP CodePhone Number [facility] CLIA: [id number] [address] * Estradiol (03/06/2025 9:03 AM CDT)ComponentValueRef RangeTest MethodAnalysis TimePerformed AtPathologist VqfspmftmGabayizob44pu/mL03/06/2025 3:16 PM CDT [facility] LABORATORYSpecimen (Source)Anatomical Location / Laterality Collection Method / VolumeCollection TimeReceived TimeBloodVenipuncture / Jtqoifz2803/06/2025 9:03 AM CDT1 9:03 AM CDT [facility] LABORATORY - 03/06/2025 3:16 PM CDT The drug mifepristone may cause interference with the estradiol assay leading to significant falsely elevated estradiol results for up to two weeks following last dose. Expected values for menstruating females Follicular phase: 21-251 pg/mL Mid cycle phase: 38-649 pg/mL Luteal phase: 21-312 pg/mL Expected values for post menopausal females On HRT: <10-144 pg/mL Not on HRT: <10-28 pg/mL Authorizing ProviderResult TypeResult StatusGena Enriquez MBBSLAB_1Final ResultPerforming OrganizationAddressCity/State/ZIP CodePhone Number [facility] CLIA: [id number] [address] * FSH (03/06/2025 9:03 AM CDT)ComponentValueRef RangeTest MethodAnalysis Time Performed AtPathologist SignatureFSH5.6mIU/mL03/06/2025 3:16 PM CDSEYM[facility] LABORATORYSpecimen (Source)Anatomical Location / LateralityCollection Method / VolumeCollection TimeReceived TimeBloodVenipuncture / Unknown 03/06/2025 9:03 AM CDT1 9:03 AM CDT [facility] LABORATORY - 03/06/2025 3:16 PM CDT Expected values for mensturating females Follicular Phase: 3.0-8.1 mIU/mL Mid-Cycle Peak: 2.6-16.7 mIU/mL Luteal Phase: 1.4-5.5 mIU/mL Post Menopausal Females without HRT: 26.8-133.4 mIU/mL Authorizing ProviderResult TypeResult StatusMelvinalena Valderrama Zoe ALEGRIABSLAB_1Final ResultPerforming OrganizationAddressCity/State/ZIP CodePhone Number [facility] CLIA: [id number] [address] * Lipid Panel and Direct LDL(If Needed) (09/24/2019 9:41 AM CDT)ComponentValue Ref RangeTest MethodAnalysis TimePerformed AtPathologist SignatureCholesterol 1820 - 199 mg/dL09/24/2019 10:14 AM [facility] XVZFNYYVXHYaeesurcatkw574 <=149 mg/dL09/24/2019 10:14 AM [facility] LABORATORYHDL Jmtvptgujza10>=40 mg/dL09/24/2019 10:14 AM [facility] LABORATORYLDL, Ggwstcuruy470<130 mg/dL 09/24/2019 10:14 AM [facility] Chol, Wwxotknatw361dy/dL 09/24/2019 10:14 AM [facility] LABORATORYCholesterol/HDL Ratio3.604 10:14 AM [facility] LABORATORYHours Ywcmhkq3004/23/2020 10:14 AM [facility] LABORATORYSpecimen (Source)Anatomical Location / Laterality Collection Method / VolumeCollection TimeReceived TimeBloodVenipuncture / Sdcfksg8109/24/2019 9:41 AM CDT09/24/2019 9:42 AM CDT Narrative Authorizing ProviderResult TypeResult StatusSucaitlyn Mccracken MDLAB_1Final ResultPerforming OrganizationAddressCity/State/ZIP CodePhone Number [facility] [address] [place] [address], [facility] [phone] * Pap Smear (12/03/2016 8:41 AM CDT)Specimen (Source)Anatomical Location / LateralityCollection Method / VolumeCollection TimeReceived Time12/03/2016 8:41 AM CDT Narrative PN SOFT - 12/10/2016 11:57 AM CDT FINAL GYNECOLOGICAL CYTOLOGY REPORT Pathology #: [id number] ?Date Obtained: 12/03/2016 ? Date Received: 12/05/2016 INTERPRETATION/RESULTS: Negative for Intraepithelial Lesion or Malignancy. SPECIMEN ADEQUACY: Satisfactory for Evaluation. ??Endocervical cells/transformation zone component present. Verified on 12/10/2016 ??by MARY LUNA (electronic signature) CLINICAL NOTES: ?Abnormal bleeding: No, LMP: 11/20/16, Menstrual status: None ?Apply, Current form of therapy: Hormone Therapy LIQUID BASED PAP SMEAR SPECIMEN TYPE: ?ROUTINE CERVICAL PAP TEST PLEASE NOTE: The pap smear is a screening test designed to aid in the detection of cervical cancer and its precursor lesions. It is not a diagnostic procedure and should not be used as the sole means of detecting cervical cancer. Both false-positive and false-negative reports may occur. Performed at [facility], [address] [place] [address] Authorizing ProviderResult TypeResult StatusShivani Ramsey MBBSLAB_1Final Result Performing OrganizationAddressCity/State/ZIP CodePhone Number [address] [address] * HIV ANTIBODY (11/27/2012 11:13 AM CDT)ComponentValueRef RangeTest Method Analysis TimePerformed AtPathologist SignatureHIV 1/HIV 1Grf-PmulmZwg-Onxzwwtf HP CONVERSIONSpecimen (Source)Anatomical Location / LateralityCollection Method / VolumeCollection TimeReceived Time11/27/2012 11:13 AM CDT11/27/2012 3:53 PM CDT Narrative Transcriptions 07/13/2016 5:54 AM CSTNotes Recorded by CINDY Gonzales on 12/01/2012 at 11:01 AMlab results reviewed by lmInformed patient of results through My chart Authorizing ProviderResult TypeResult StatusBuffy Coronel CORE FEEDER, CNPLAB_1Final ResultPerforming OrganizationAddressCity/State/ZIP CodePhone Number HP CONVERSION * Hepatitis C Antibody, with Reflex (11/27/2012 11:13 AM CDT)ComponentValueRef RangeTest MethodAnalysis TimePerformed AtPathologist SignatureHepatitis C GunviqaoEut-TkxemYbp-VqtaozypNQ CONVERSIONSpecimen (Source)Anatomical Location / LateralityCollection Method / VolumeCollection TimeReceived Time11/27/2012 11:13 AM CDT11/27/2012 3:53 PM CDT Narrative Transcriptions 07/13/2016 5:54 AM CSTNotes Recorded by CINDY Gonzales on 12/01/2012 at 11:01 AMlab results reviewed by lmInformed patient of results through My chart Authorizing ProviderResult TypeResult StatusLyravin Coronel CORE FEEDER, CNPLAB_1Final ResultPerforming OrganizationAddressCity/State/ZIP CodePhone Number HP CONVERSION from Last 3 Months or Most Recently Relevant to Health Maintenance Insurance * Guarantor: Caesar Vigil TypeRelation to PatientDate of BirthPhone Billing AddressPersonal/MhyvceGmzi89/24/[phone] (Work) [address] [place] [address] Care Teams Team MemberRelationshipSpecialtyStart DateEnd Date Unassigned, Provider [address] [place] [address] PCP - General09/07/22
--- OUTSIDE RECORDS SUMMARY | 2025-05-27 18:23 | XMS_ITS | Encounter Summary ---
Author Organization [place] Address [facility] [place] [address] Care Team Providers Care Business Enterprise Officer Name Role Phone Matt Boston MD Unavailable Katina Newby MD Unavailable [phone] Sharron Pereira APRN [employer]ZZ[employer] DELIV[employer] DRIVER Primary Care Provi bernardino Sharron Pereira APRN [employer]ZZ[employer] DELIVERY DRIVER Unavailable [phone] Encounter Details DateTypeDepartmentCare Team (Latest Contact Info)Mryxyyqwczh09/18/2025[facility] Medical Advice [facility] Women[facility] [address] [place] [address] Agata Jacobson, RN Social History Tobacco UseTypesPacks/DayYears UsedDateSmoking Tobacco: NeverPassive Smoke Exposure: NeverSmokeless Tobacco: NeverAlcohol UseStandard Drinks/WeekComments Not Currently0 (1 standard drink = 0.6 oz pure alcohol)Alcoholic Drinks/day: social drinkerSocial Connection and Isolation PanelAnswerDate RecordedFrequency of Communication with Friends and FamilyNot on file07/27/2024How often do you get together with friends or relatives?Twice a week07/27/2024ttends Mandaeism ServicesNot on file07/27/2024tive Member of Clubs or OrganizationsNot on file 07/27/2024ttends Club or Organization MeetingsNot on file07/27/2024Marital StatusNot on file07/27/2024UDIT-CAnswerDate RecordedQ1: How often do you have a drink containing alcohol?Monthly or less08/14/2023Q2: How many drinks containing alcohol do you have on a typical day when you are drinking?1 or Frequency of Binge DrinkingNot on file08/14/2023HQ-2AnswerDate RecordedPHQ-2 Ecfyj540[facility] [place] [facility] - Occupational Stress QuestionnaireAnswerDate RecordedDo you feel stress - tense, restless, nervous, or anxious, or unable to sleep at night because yourmind is troubled all the time - these days?Rather much07/27/2024Exercise Vital SignAnswerDate RecordedOn average, how many days per week do you engage in moderate to strenuous exercise (like a brisk walk)?3 days07/27/2024On average, how many minutes do you engage in exercise at this level?50 min07/27/2024dolescent EducationAnswerDate RecordedGetting School Help NeededNot on file02/22/2023Food InsecurityAnswerDate RecordedWithin the past 12 months, did you worry that your food would run out before you got money to buy more?No07/27/2024Within the past 12 months, did the food you bought just not last and you didn???t have money to getmore?No 07/27/2024Housing StabilityAnswerDate RecordedDo you have housing? (Housing is defined as stable permanent housing and does not include staying outside in a car, in a tent, in an abandoned building, in an overnight jail, or couch-surfing.)Yes07/27/2024re you worried about losing your housing?No 07/27/2024Financial Resource StrainAnswerDate RecordedWithin the past 12 months, have you or your family members you live with been unable to get utilities (heat, electricity) when it was really needed?No07/27/2024Transportation Needs AnswerDate RecordedWithin the past 12 months, has lack of transportation kept you from medical appointments, getting your medicines, non-medical meetings or appointments, work, or from getting things that you need?No07/27/2024 Interpersonal SafetyAnswerDate RecordedDo you feel physically and emotionally safe where you currently live?Yes07/27/2024Within the past 12 months, have you been hit, slapped, kicked or otherwise physically hurt by someone?No07/27/2024 Within the past 12 months, have you been humiliated or emotionally abused in other ways by your partner or ex-partner?No07/27/2024CommentsNoSex and Gender InformationValueDate RecordedSex Assigned at MriikQkidwy52/24/2019 9:44 AM CDTLegal IlvBszbow11/04/2012 4:46 AM CSTGender FbpvkrczYarrxl47/24/2019 9:44 AM CDTSexual MkiuwunhgytRmjeklpm83/24/2019 9:44 AM CDTdocumented as of this encounter Plan of Treatment Not on file documented as of this encounter Visit Diagnoses Not on filedocumented in this encounter Additional Health Concerns AssessmentNoted TimePHQ-9 Depression Total Score: 8007/27/2024 7:08 AM WEIR FISHER documented as of this encounter Care Teams Team MemberRelationshipSpecialtyStart DateEnd Date Sharron Pereira APRN PIZZA DELIVERY DRIVER [address] [place] [address] PCP - GeneralFamily Medicine07/27/24 Matt Boston MD [address] [place] [address] PhysicianClinical Cardiac Electrophysiology06/11/23 Katina Newby MD [address] [place] [address] Assigned OBGYN Provider09/24/23 Sharron Pereira APRN PIZZA DELIVERY DRIVER [address] [place] [address] Assigned PCP08/23/24documented as of this encounter
[2025-05-27 18:24] VITALS: BP 140/80; PULSE 80; RESP 18; TEMP 36.6; O2SAT 95
--- OUTSIDE RECORDS SUMMARY | 2025-05-27 18:24 | XMS_ITS | CCD ---
Author Name Interface, [id number] lity Address [address] [place] [id number] [facility] Address [facility] [address] [address] Reason for Visit Social History Date Name Value 01/30/2025 Sex Female
--- OUTSIDE RECORDS SUMMARY | 2025-05-27 18:24 | XMS_ITS | Clinical Summary ---
Author Organization [facility] Address [address] [place] [id number] Care Team Providers Care Salvage Engineer Name Role Phone Govind Burt MD Primary Care Provider [phone] Allergies Active AllergyReactionsCriticalityNoted OyhtHlgbarzaXxeszyqdriyZiys18/04/2018 Medications MedicationSigDispense QuantityRefillsLast FilledStart DateEnd DateStatus levothyroxine (SYNTHROID) 100 mcg tablet Take 1 tablet by mouth before breakfast.Active busPIRone (BUSPAR) 10 mg tablet Take 10 mg by mouth 3 times daily.06/20/2020ctive divalproex (DEPAKOTE ER) 250 mg Extended-Release tablet Take 750 mg by mouth at bedtime.06/20/2020ctive hydrOXYzine pamoate (VISTARIL) 50 mg capsule Take 50 mg by mouth 3 times daily if needed.06/20/2020ctive propranoloL (INDERAL) 10 mg tablet Take 5 mg by mouth. Take 1 half tab ( 5 mg) up to 3 times a day for increased heart rate over 90 BPM06/20/2020ctive QUEtiapine (SEROQUEL) 200 mg tablet Take 200 mg by mouth at bedtime.06/20/2020ctive QUEtiapine (SEROQUEL) 50 mg tablet Take 50 mg by mouth one time if needed. One time daily as ewjxin1006/20/2020ctive Active Problems ProblemNoted DateDiagnosed DateBipolar I disorder, current or most recent episode manic, in partial rntrsgfci57/19/4625Abpeajy61/04/2018Hypothyroidism (acquired)03/06/2018Pancreatic cyst03/06/2018 Immunizations ImmunizationAdministration DatesNext DueCOVID-19 vaccine (Moderna 100mcg/0.5mL) PF, MDV04,08/19/2020Hepatitis A (Adult)12/23/1997,06/11/1997Influenza Virus, Weldhnnpdyc90/17/2017Influenza, IIV3 (Age 6-35 mos)04/18/2009Influenza, IIV3 (Age >=3 years)03/24/2012Influenza, PIY992Influenza, IIV4 (Age 6-35 Mos)04/17/2013MMR10/15/1991,12/01/1980Oral Polio Xzaqotm5010/21/1984,03/14/1981, 03/12/1980,1979 Social History Tobacco UseTypesPacks/DayYears UsedDateSmoking Tobacco: NeverSmokeless Tobacco: Never Tobacco Cessation:Counseling Given: Yes Alcohol UseStandard Drinks/WeekCommentsYes0 (1 standard drink = 0.6 oz pure alcohol)occasional. 1-2 drinks 1-2 x a monthCommentsNoSex and Gender InformationValueDate RecordedSex Assigned at BirthNot on fileLegal SexFemale 06/16/2012 7:19 AM CSTGender IdentityNot on fileSexual OrientationNot on file Last Filed Vital Signs Vital SignReadingTime TakenCommentsBlood Xyffdndm468/801 12:25 PM CDT Dqqxs154406/21/2020 11:30 AM CSTsmart ognzhXjggtzygevn34.8 ??C (98.3 ??F) 03/06/2018 8:30 AM CDTRespiratory Rate--Oxygen Jzwacgjnyf348%03/06/2018 8:30 AM CDTInhaled Oxygen Concentration--Yfdbrw90.8 kg (165 lb)06/21/2020 11:30 AM STOCK CHECKERER Hpzdtz879.7 cm (5' 8)06/21/2020 11:30 AM CSTBody Mass Index25.0906/21/2020 11:30 AM STOCK CHECKERER Plan of Treatment Health MaintenanceDue DateLast DoneCommentsTetanus gptagsb2708/29/1990Depression screening for age 12+1991HIV for age 15-Hepatitis C screening for age 18-7908/29/1997Hepatitis B series for 19+ (1 of 3 - 19+ 3-dose series) 08/29/1998HPV series for age 9-45 (1 - 3-dose SCDM series)08/29/2006Pap test for age 21-65, 04/01/2015BMI (ht and wt on same day) for age 18+ , 03/06/2018Mammogram for age 40-Colonoscopy through age Lipids for age 45-5COVID-19 vaccine series (2024- season)502/, 02/15/2022, 09/15/2020, Additional history existsInfluenza Vaccine (#1)/, 04/01/2015, 04/17/2013, Additional history existsPneumococcal series for age 6-49Aged OutNo longer eligible based on patient's age to complete this topic Procedures Procedure NamePriorityDate/TimeAssociated DiagnosisCommentsGYN THIN PREP PAP SCREEN VJJGAQTsgavso65/30/2015 3:15 PM CDT from Last 3 Months or Most Recently Relevant to Health Maintenance Results * DISABILITY ADVOCATE THIN PREP PAP SCREEN IMAGED (04/01/2015 3:15 PM CDT)ComponentValueRef RangeTest MethodAnalysis TimePerformed AtPathologist SignatureGYN CYTOLOGYSee Anatomic Pathology case 04/09/2015 2:01 PM [facility]TRAL LABORATORYSpecimen (Source)Anatomical Location / LateralityCollection Method / VolumeCollection TimeReceived TimeSpecimen (specimen) (Cervical/Vaginal)Client Collect / Unknown 04/01/2015 3:15 PM CDT106/04/2014 1:25 PM STOCK CHECKERER Narrative Authorizing ProviderResult TypeResult StatusDecaren Isaac MD PATHOLOGY/CYTOLOGYFinal ResultPerforming OrganizationAddressCity/State/ZIP Code Phone Number [facility] [address] [place] [address], from Last 3 Months or Most Recently Relevant to Health Maintenance Insurance Care Teams Team MemberRelationshipSpecialtyStart DateEnd Govind Burt MD [address] [place] [id number] PCP - GeneralFamily Practice08/04/15
--- OUTSIDE RECORDS SUMMARY | 2025-05-27 18:24 | XMS_ITS | Clinical Summary ---
Author Organization [place] Address [facility] [place] [address] Care Team Providers Care Marketing Program Manager Name Role Phone Matt Boston MD Unavailable Katina Newby MD Unavailable [phone] [facility] TAIL BOARD WORKER Primary Care Provi bernardino [facility] APRN TAIL BOARD WORKER Unavailable [phone] Allergies Active AllergyReactionsCriticalityNoted CsunGvnfeimwVcyewtcjzamDzdiCtb17/27/2007 Medications * This document contains information received from the source organization and may not represent a complete record from that organization. MedicationSigDispense QuantityRefillsLast FilledStart DateEnd DateStatus ibuprofen (ADVIL/MOTRIN) 200 MG tablet Take 400 mg by mouth every 8 hours as needed for mild painActive multivitamin w/minerals (THERA-VIT-M) tablet Take 1 tablet by mouth dailyActive busPIRone (BUSPAR) 10 MG tablet Indications:Generalized anxiety disorderTake 2 tablets (20 mg) by mouth 2 times daily 120 tablet ctive lamoTRIgine (LAMICTAL) 150 MG tablet Indications:Bipolar 1 disorder, depressed, moderate (H)Take 1 tablet (150 mg) by mouth At Bedtime 30 tablet ctive Additional Information Patient taking differently:150 mg Oral2 TIMES DAILY, Reported on 11/24/2024 traZODone (DESYREL) 150 MG tablet Indications:Insomnia due to other mental disorderTake 2 tablets (300 mg) by mouth At Bedtime 60 tablet 1Active LORazepam (ATIVAN) 1 MG tablet Indications:AnxietyTake 1 tablet (1 mg) by mouth daily as needed for anxiety 30 tablet 05/24/2021ctive liothyronine (CYTOMEL) 5 MCG tablet Take 2 Tablets (10 mcg) by mouth daily.Active doxycycline monohydrate (MONODOX) 50 MG capsule Take 50 mg by mouth daily06/18/2021ctive methylphenidate (RITALIN) 5 MG tablet 06/26/2023ctive propranolol (INDERAL) 10 MG tablet 3Active levothyroxine (SYNTHROID/LEVOTHROID) 100 MCG tablet Indications:Hypothyroidism (acquired)Take 1 tablet (100 mcg) by mouth daily. 90 tablet 5Active spironolactone (ALDACTONE) 100 MG tablet Indications:Acne, unspecified acne typeTake 1 tablet (100 mg) by mouth daily. 90 tablet 5Active estradiol (CHRISTIN) 0.05 MG/24HR bi-weekly patch Indications:Menopausal flushingPlace over 96 hours onto the skin twice a week. 24 patch 5Active Additional Information Patient not taking.Reported on 04/08/2025 estradiol (VIVELLE-DOT) 0.1 MG/24HR bi-weekly patch Indications:PerimenopausePlace 1 patch onto the skin twice a week 24 patch 5Active Additional Information Patient not taking.Reported on 04/08/2025 progesterone (PROMETRIUM) 200 MG capsule Indications:PerimenopauseTake 1 capsule (200 mg) by mouth daily. 100 capsule 5Active Additional Information Patient not taking.Reported on 04/08/2025 drospirenone (SLYND) 4 MG TABS tablet Indications:PerimenopauseTake 1 tablet (4 mg) by mouth daily. 84 tablet 5Active Active Problems ProblemNoted DateDiagnosed DateAcne, unspecified acne type07/18/2023ifficulty ochdppfikwztr74/15/2024S/P tfammyiyaxue06/15/2022Other joeoaxqxoeqp37/13/2021 Bipolar 1 zxgwjowa13/03/8252Akvpubf48/04/2018CARDIOVASCULAR SCREENING; LDL GOAL LESS THAN 5024804/02/2010Hypothyroidism (acquired)04/14/2009 Overview (04/19/2020): Overview: Hypothyroidism On Replacement Ukcvwgva85/12/2009 Overview (07/27/2024): Insomnia NOS Resolved Problems ProblemNoted DateDiagnosed DateResolved DateAbnormal uterine hgfwsqes78/03/2020 07/18/2023Mirena IUD inserted 08/14/18 - remove on or before 07/18/2023Screening for cervical lncqhj5207/18/2023 Overview (07/14/2018): 07/28/99 ASCUS pap, cannot exclude LSIL @ age 19 01/31/01 ASCUS pap 04/07/01 [place] Bx & ECC: neg 2001 - 2012 all NIL paps 2014 & 2016 - NIL pap, neg HR HPV results [Above per Care Everywhere] 2018 NIL pap, neg HR HPV. Plan 5 year cotest Encounters DateTypeDepartmentCare BpudOllsbbueesl92/18/2025[facility] Medical Advice [facility] [address] [place] [phone] Agata Jacobson RN 04/15/2025Telephone [facility] [address] [place] [address] Katina Newby MD Prior Auth - Medication (Slynd-APPROVED)04/12/2025Telephone [facility] [address] [place] [address] Katina Newby MD Formulary Issue (Slynd)04/08/2025 1:00 PM CSTVirtual Visit [facility] [address] [place] [address] Katina Newby MD Perimenopause (Primary Dx); Nonintractable episodic headache, unspecified headache type03/24/2025[facility] Medical Advice [facility] [address] [place] [address] Katina Newby MD 03/12/2025[facility] Medical Advice [facility] [address] [place] [address] Katina Newby MD from Last 3 Months Immunizations ImmunizationAdministration DatesNext DueCOVID-19 12+ (Pfizer)4COVID-19 Bivalent 12+ (Pfizer)02/15/2022Flu, Yhtachzewcv69/17/2017,03/05/2011,03/17/2010 Hepatitis A (VAQTA)(ADULT 19+)12/23/1997,06/11/1997Influenza (H1N1)06/22/2009 Influenza (prior to 2023)04/18/2009Influenza Vaccine >6 months,quad, PF 07/18/2023,02/15/2022,04/29/2020,03/31/2019,05/26/2018,04/01/2015Influenza Vaccine IM Ages 6-35 Months 4 Valent (PF)04/17/2013,03/05/2011MMR (MMRII) 10/15/1991,12/01/1980OPV, trivalent, live10/21/1984,03/14/1981,03/12/1980, 1979TDAP (Adacel,Boostrix)01/25/2015,04/25/2012,06/03/2011Td (Adult), Nncmlbee99/09/2004,10/27/1993 Family History Medical HistoryRelationCommentsCoronary Artery DiseaseFatherHyperlipidemiaFather LipidsFatherAlzheimer DiseaseMaternal GrandfatherBreast CancerMaternal GrandmotherHeart DefectMotherbicuspid valveHypertensionMotherCardiovascular Paternal GrandfatherCardiovascularPaternal GrandmotherColon CancerNo family hx ofRelationStatusCommentsFatherAliveMaternal GrandfatherDeceasedMaternal GrandmotherAliveMotherAlivePaternal GrandfatherDeceasedPaternal Grandmother DeceasedSister 1AliveSister 2AliveSonAlive Social History Tobacco UseTypesPacks/DayYears UsedDateSmoking Tobacco: NeverPassive Smoke Exposure: NeverSmokeless Tobacco: Never Tobacco Cessation:Counseling Given: Not Answered Alcohol UseStandard Drinks/WeekCommentsNot Currently0 (1 standard drink = 0.6 oz pure alcohol)Alcoholic Drinks/day: social drinkerSocial Connection and Isolation PanelAnswerDate RecordedFrequency of Communication with Friends and FamilyNot on file07/27/2024How often do you get together with friends or relatives?Twice a week07/27/2024ttends Worship ServicesNot on file07/27/2024tive Member of Clubs or OrganizationsNot on file07/27/2024ttends Club or Organization Meetings Not on file07/27/2024Marital StatusNot on file07/27/2024UDIT-CAnswerDate RecordedQ1: How often do you have a drink containing alcohol?Monthly or less 08/14/2023Q2: How many drinks containing alcohol do you have on a typical day when you are drinking?1 or Frequency of Binge DrinkingNot on file 08/14/2023HQ-2AnswerDate RecordedPHQ-2 Itubt159Fin[facility] [place] of Occupational Health - Occupational Stress QuestionnaireAnswerDate RecordedDo you feel stress - tense, restless, nervous, or anxious, or unable to sleep at night because yourmind is troubled all the time - these days?Rather much07/27/2024 Exercise Vital SignAnswerDate RecordedOn average, how many days per week do you engage in moderate to strenuous exercise (like a brisk walk)?3 days07/27/2024On average, how many minutes do you engage in exercise at this level?50 min 07/27/2024dolescent EducationAnswerDate RecordedGetting School Help NeededNot on file02/22/2023Food InsecurityAnswerDate RecordedWithin the past 12 months, did you worry that your food would run out before you got money to buy more?No 07/27/2024Within the past 12 months, did the food you bought just not last and you didn???t have money to getmore?No07/27/2024Housing StabilityAnswerDate RecordedDo you have housing? (Housing is defined as stable permanent housing and does not include staying outside in a car, in a tent, in an abandoned building, in an overnight usp, or couch-surfing.)Yes07/27/2024re you worried about losing your housing?No07/27/2024Financial Resource StrainAnswerDate Recorded Within the past 12 months, have you or your family members you live with been unable to get utilities (heat, electricity) when it was really needed?No 07/27/2024Transportation NeedsAnswerDate RecordedWithin the past 12 months, has lack of transportation kept you from medical appointments, getting your medicines, non-medical meetings or appointments, work, or from getting things that you need?No07/27/2024Interpersonal SafetyAnswerDate RecordedDo you feel physically and emotionally safe where you currently live?Yes07/27/2024Within the past 12 months, have you been hit, slapped, kicked or otherwise physically hurt by someone?No07/27/2024Within the past 12 months, have you been humiliated or emotionally abused in other ways by your partner or ex-partner?No07/27/2024 CommentsNoSex and Gender InformationValueDate RecordedSex Assigned at MbwriEsfgyt03/24/2019 9:44 AM CDTLegal AplDlnukp59/04/2012 4:46 AM CSTGender ByfihqyfBwctld38/24/2019 9:44 AM CDTSexual DhpoebvcwddBjpwnjil40/24/2019 9:44 AM CDT Last Filed Vital Signs Vital SignReadingTime TakenCommentsBlood Tztrpuyc218/80010/09/2024 10:14 AM CDT Ukjqp4509/24/2025 7:44 AM XIDGhsgrtxvqbv40.7 ??C (98 ??F)07/27/2024 7:44 AM MANUFACTURING MANAGEMENT ASSOCIATE Respiratory Ovom220207/27/2024 7:44 AM CSTOxygen Rjivugpovv13%07/27/2024 7:44 AM CSTInhaled Oxygen Concentration--Eimzlu02.2 kg (146 lb)10/09/2024 10:14 AM CDT Waovdw135.2 cm (5' 7)07/27/2024 7:44 AM CSTBody Mass Index22.8707/27/2024 7:44 AM MANUFACTURING MANAGEMENT ASSOCIATE Plan of Treatment Health MaintenanceDue DateLast DoneCommentsCT HEKDRYQBZRWL83/29/1980FIT 1979FLEX SIG1979DNA (Cologuard)1979HEPATITIS B VACCINE (1 of 3 - 19+ 3-dose series)08/29/1998DTAP/TDAP/TD VACCINE (6 - Td or Tdap)01/25/2025 01/25/2015, 04/25/2012, 06/03/2011, Additional history existsCOVID-19 VACCINE ( season), 02/15/2022, 04/18/2021, Additional history existsINFLUENZA VACCINE (#1), 02/15/2022, 04/29/2020, Additional history existsANNUAL REVIEW OF HM LNMBAF9407/27/2025 07/27/2024, 07/18/2023, 02/15/2022TSH W/FREE T4 STHBDS29, 07/18/2023, 02/16/2022, Additional history existsYEARLY PREVENTIVE VISIT , 07/18/2023, 07/28/2019, Additional history existsMAMMO EDMRMXHEY08, 07/18/2023, 1DIABETES SCREENING , 07/27/2024, 07/18/2023, Additional history existsADVANCE CARE XRAURCRO86, 08/19/2023, 07/18/2023, Additional history jrmanwVXEFG23, 07/18/2023, 02/16/2022, Additional history existsZOSTER VACCINE (1 of 2)08/29/20292590DSXPTQUSKQF13, 03/06/2024OLORECTAL CANCER AYCIHOMKM24/04/2034HPV HPBRKurehbikecmw98/05/2019PAP Xtpjkgbsmstv47/05/2019, 04/01/2015, 07/02/2012HEPATITIS C SCREENINGCompleted 02/16/2022, 11/27/2012HIV JVHASVMGAQkxrglgbl26/16/2022PHQ-2 (once per calendar year)Vamrraaoh72/24/2025, 07/27/2024, 07/27/2024, Additional history existsHPV VACCINE (No Doses Required)CompletedMENINGITIS VACCINEAged OutNo longer eligible based on patient's age to complete this topicPNEUMOCOCCAL VACCINE: PEDIATRICS (0 to 5 YEARS) AND AT-RISK PATIENTS (6 to 49 YEARS)Aged OutNo longer eligible based on patient's age to complete this topic Procedures Procedure NamePriorityDate/TimeAssociated DiagnosisCommentsMA SCREENING BILATERAL W/ ZVDWSpjoevo00/18/2025 12:43 PM CDT Visit for screening mammogram COMPREHENSIVE METABOLIC WWJSONqxinhq60/24/2025 8:44 AM MANUFACTURING MANAGEMENT ASSOCIATE CARDIOVASCULAR SCREENING; LDL GOAL LESS THAN 160 TSH WITH FREE T4 XUBPHEQuxjmkv85/24/2025 8:44 AM MANUFACTURING MANAGEMENT ASSOCIATE Hypothyroidism (acquired) LIPID REFLEX TO DIRECT LDL HPFKZUufkmpe83/24/2025 8:44 AM MANUFACTURING MANAGEMENT ASSOCIATE CARDIOVASCULAR SCREENING; LDL GOAL LESS THAN 160 VSFTIOOKERGBkyiryq91/04/2024 10:35 AM CDT HIV ANTIGEN ANTIBODY MTUWMDrehvse55/16/2022 9:44 AM CDT Screening for HIV (human immunodeficiency virus) HEPATITIS C SCREEN REFLEX TO HCV RNA QUANT AND CBGQVEFTGjnmhcx46/16/2022 9:44 AM CDT Need for hepatitis C screening test PAP IMAGED THIN LAYER YDQKEWSuxlglh34/05/2019 11:34 AM MANUFACTURING MANAGEMENT ASSOCIATE Screening for cervical cancer HPV HIGH RISK TYPES DNA WRAGRXODMqhammd37/05/2019 10:50 AM MANUFACTURING MANAGEMENT ASSOCIATE Screening for cervical cancer from Last 3 Months or Most Recently Relevant to Health Maintenance Results * MA Screening Bilateral w/ Reji (09/18/2024 12:43 PM CDT)Anatomical Region LateralityModalityBreastBilateralMammographySpecimen (Source)Anatomical Location / LateralityCollection Method / VolumeCollection TimeReceived Time Impressions 09/18/2024 1:38 PM CDT IMPRESSION: ACR BI-RADS Category 1: Negative BREAST CANCER SCREENING RECOMMENDATION: Routine yearly mammography beginning at age 40 or as discussed with your provider. The results and recommendations of this examination will be communicated to the patient. Haider Estrada MD Narrative 09/18/2024 1:38 PM CDT BILATERAL FULL FIELD DIGITAL SCREENING MAMMOGRAM WITH TOMOSYNTHESIS Performed on: 09/18/24 Compared to: 07/18/2023, 05/30/2021, and 02/24/2020 Technique: ??This study was evaluated with the assistance of Computer-Aided Detection. ??Breast Tomosynthesis was used in interpretation. Findings: The breasts are heterogeneously dense, which may obscure small masses. ??There is no radiographic evidence of malignancy. Authorizing ProviderResult TypeResult StatusKatina Newby MDIMArcelia MAMMOGRAPHY ORDERABLESFinal Result * TSH with free T4 reflex (07/27/2024 8:44 AM MANUFACTURING MANAGEMENT ASSOCIATE)ComponentValueRef RangeTest MethodAnalysis TimePerformed AtPathologist SignatureTSH0.470.30 - 4.20 uIU/mL 07/27/2024 10:37 PM CSTUU LABORATORYSpecimen (Source)Anatomical Location / LateralityCollection Method / VolumeCollection TimeReceived TimeBloodBLOOD SPECIMEN / UnknownVenipuncture / Ifzfbjk7207/27/2024 8:44 AM CST07/27/2024 8:44 AM MANUFACTURING MANAGEMENT ASSOCIATE Narrative Authorizing ProviderResult TypeResult StatusSharron Pereira APRN CNPLAB - BLOOD ORDERABLESFinal ResultPerforming OrganizationAddressCity/State/ZIP Code Phone Number [facility] [place] [facility] [address] [facility], [address] [place] [address] * (ABNORMAL) Lipid panel reflex to direct LDL Fasting (07/27/2024 8:44 AM MANUFACTURING MANAGEMENT ASSOCIATE) ComponentValueRef RangeTest MethodAnalysis TimePerformed AtPathologist SwihabgtcAmgszxfscwo945(H)<200 mg/dL07/27/2024 10:37 PM CSTUU LABORATORY Tiitsdpwrwgkq466<150 mg/dL07/27/2024 10:37 PM CSTUU LABORATORYDirect Measure HDL59>=50 mg/dL07/27/2024 10:37 PM CSTUU LABORATORYLDL Cholesterol Calculated 131(H)<100 mg/dL07/27/2024 10:37 PM CSTUU LABORATORYNon HDL Ettuqbaofwp387(H) <130 mg/dL07/27/2024 10:37 PM CSTUU LABORATORYPatient Fasting > 8hrs?Yes 07/27/2024 10:37 PM CSTUU LABORATORYSpecimen (Source)Anatomical Location / LateralityCollection Method / VolumeCollection TimeReceived TimeBloodBLOOD SPECIMEN / UnknownVenipuncture / Yltokdz3607/27/2024 8:44 AM CST07/27/2024 8:44 AM MANUFACTURING MANAGEMENT ASSOCIATE Narrative [facility] - 07/27/2024 10:37 PM MANUFACTURING MANAGEMENT ASSOCIATE Cholesterol Desirable: < 200 mg/dL Borderline High: 200 - 239 mg/dL High: >= 240 mg/dL Triglycerides Normal: < 150 mg/dL Borderline High: 150 - 199 mg/dL High: 200-499 mg/dL Very High: >= 500 mg/dL Direct Measure HDL Female: >= 50 mg/dL Male: >= 40 mg/dL LDL Cholesterol Desirable: < 100 mg/dL Above Desirable: 100 - 129 mg/dL Borderline High: 130 - 159 mg/dL High: ??160 - 189 mg/dL Very High: >= 190 mg/dL Non HDL Cholesterol Desirable: < 130 mg/dL Above Desirable: 130 - 159 mg/dL Borderline High: 160 - 189 mg/dL High: 190 - 219 mg/dL Very High: >= 220 mg/dL Authorizing ProviderResult TypeResult StatusJesher Pereira APRN CNPLAB - BLOOD ORDERABLESFinal ResultPerforming OrganizationAddressCity/State/ZIP Code Phone Number LABORATORY [facility] [place] [facility] [address] [facility] [address] [facility], [address] [place] [address], [facility] * Comprehensive metabolic panel (BMP + Alb, Alk Phos, ALT, AST, Total. Bili, TP) (07/27/2024 8:44 AM [facility])ComponentValueRef RangeTest MethodAnalysis Time Performed AtPathologist GiatdrjywJygvxy222708 - 145 mmol/L07/27/2024 10:37 PM CSTUU LABORATORYPotassium5.03.4 - 5.3 mmol/L07/27/2024 10:37 PM [facility] LABORATORYCarbon Dioxide (CO2)2622 - 29 mmol/L07/27/2024 10:37 PM CSTUU LABORATORYAnion Ows793 - 15 mmol/L07/27/2024 10:37 PM [facility] LABORATORYUrea Nitrogen8.86.0 - 20.0 mg/dL07/27/2024 10:37 PM [facility] LABORATORYCreatinine0.80 0.51 - 0.95 mg/dL07/27/2024 10:37 PM [facility] LABORATORYGFR Estimate>90>60 mL/min/1.65x15807/27/2024 10:37 PM [facility] LABORATORYComment:eGFR calculated using 2020 CKD-EPI equation.Calcium9.88.8 - 10.4 mg/dL07/27/2024 10:37 PM [facility] TIVLKOVEPTLoemyskb77617 - 107 mmol/L07/27/2024 10:37 PM [facility] LABORATORY Nzkdmnq1705 - 99 mg/dL07/27/2024 10:37 PM [facility] LABORATORYAlkaline Phosphatase 5940 - 150 U/L07/27/2024 10:37 PM [facility] FIAUPWMZZPSYB642 - 45 U/L07/27/2024 10:37 PM [facility] XMIHOIWZVPKPT488 - 50 U/L07/27/2024 10:37 PM [facility] LABORATORY Protein Total7.66.4 - 8.3 g/dL07/27/2024 10:37 PM [facility] LABORATORYAlbumin4.6 3.5 - 5.2 g/dL07/27/2024 10:37 PM [facility] LABORATORYBilirubin Total0.2<=1.2 mg/dL07/27/2024 10:37 PM [facility] LABORATORYPatient Fasting > 8hrs?Yes07/27/2024 10:37 PM [facility] LABORATORYSpecimen (Source)Anatomical Location / Laterality Collection Method / VolumeCollection TimeReceived TimeBloodBLOOD SPECIMEN / UnknownVenipuncture / Pvkvejf4007/27/2024 8:44 AM CST07/27/2024 8:44 AM MANUFACTURING MANAGEMENT ASSOCIATE Narrative Authorizing ProviderResult TypeResult StatusJesher Pereira WIRED SWEATBAND CUTTER CNPLAB - BLOOD ORDERABLESFinal ResultPerforming OrganizationAddressCity/State/ZIP Code Phone Number [facility] [address] [facility], [address] [address] * COLONOSCOPY (03/06/2024 10:35 AM CDT)ComponentValueRef RangeTest Method Analysis TimePerformed AtPathologist SignatureCOLOWindom Area Hospital Patient Name: Yudy Noble Procedure Date: 03/06/2024 10:35 AM ? Date of : 1980 ?Admit Type: Outpatient Age: 43 ? Gender: Female Attending MD: ARELI ROSALES , , ??Total Sedation Time: approximately 18 min Instrument Name: [id number] Adult Colonoscope Procedure: ?Colonoscopy Indications: ?Abdominal pain in the right upper quadrant Providers: ?ARELI ROSALES (Doctor) Referring MD: ? BILL CASTRO MD (Referring MD) Medicines: ?Midazolam 3 mg IV, Fentanyl 150 micrograms IV Complications: ?No immediate complications. Procedure: ?Pre-Anesthesia Assessment: ?- Prior to the procedure, a History and Physical ?was performed, and patient medications, allergies ?and sensitivities were reviewed. The patient's ?tolerance of previous anesthesia was reviewed. ?- The risks and benefits of the procedure and the ?sedation options and risks were discussed with the ?patient. All questions were answered and informed ?consent was obtained. ?- Patient identification and proposed procedure ?were verified prior to the procedure by the ?physician, the nurse and the computed tomography technician. The ?procedure was verified in the endoscopy suite. ?- Pre-procedure physical examination revealed no ?contraindications to sedation. ?- ASA Grade Assessment: I - A normal, healthy ?patient. ?- After reviewing the risks and benefits, the ?patient was deemed in satisfactory condition to ?undergo the procedure. ?- The anesthesia plan was to use moderate ?sedation/analgesia (conscious sedation). ?- Immediately prior to administration of ?medications, the patient was re-assessed for ?adequacy to receive sedatives. ?- Sedation was administered by the nurse. The ?sedation level attained was moderate. ?- The heart rate, respiratory rate, oxygen ?saturations, blood pressure, adequacy of pulmonary ?ventilation, and response to care were monitored ?throughout the procedure. ?- The physical status of the patient was ?re-assessed after the procedure. ?After obtaining informed consent, the colonoscope ?was passed under direct vision. Throughout the ?procedure, the patient's blood pressure, pulse, and ?oxygen saturations were monitored continuously. The ?Olympus Adult Colonovideoscope, Model # ?[id number], [facility]# [id number], # [id number] ?was introduced through the anus and advanced to the ?terminal ileum, with identification of the ?appendiceal orifice and IC valve. The colonoscopy ?was performed without difficulty. The patient ?tolerated the procedure well. The quality of the ?bowel preparation was good. The terminal ileum, ?ileocecal valve, appendiceal orifice, and rectum ?were photographed. The entire colon was examined. ?Scope withdrawal time was 9 minutes. ? Findings: ? The perianal and digital rectal examinations were normal. ? The terminal ileum appeared normal. ? The entire examined colon appeared normal on direct and retroflexion ? views. ? Moderate Sedation: ? Moderate (conscious) sedation was administered by the nurse and ? supervised by the endoscopist. The following parameters were monitored: ? oxygen saturation, heart rate, blood pressure, and response to care. ? Total physician intraservice time was 18 minutes. ? I was present at bedside for one-to-one sedation monitoring for the ? whole procedure. Impression: ? - The examined portion of the ileum was normal. ?- The entire examined colon is normal on direct and ?retroflexion views. ?- No specimens collected. Recommendation: ? - Discharge patient to home. ?- Repeat colonoscopy in 10 years for screening ?purposes. ? Procedure Code(s): ? --- Professional --- ? 70412, Colonoscopy, flexible; diagnostic, including collection of ? specimen(s) by brushing or washing, when performed (separate procedure) Diagnosis Code(s): ? --- Professional --- ? R10.11, Right upper quadrant pain CPT copyright 2021 [employer]. All rights reserved. The codes documented in this report are preliminary and upon loss prevention consultant review may be revised to meet current compliance requirements. ARELI ROSALES, 03/06/2024 11:15:10 AM I was physically present for the entire viewing portion of the exam. PRIBRENT ROSALES Number of Addenda: 0 Note Initiated On: 03/06/2024 10:35 AM MRN: ?[id number] Procedure Date: ? 03/06/2024 10:35:22 AM Estimated Blood Loss: ? Scope In: Scope Out:RADIOLOGY RESULTSSpecimen (Source)Anatomical Location / Laterality Collection Method / VolumeCollection TimeReceived Time03/06/2024 10:35 AM CDT Narrative Authorizing ProviderResult TypeResult StatusBill CHESTER-CPROCEDURESFinal ResultPerforming OrganizationAddressCity/State/ZIP CodePhone Number RADIOLOGY RESULTS * HIV Antigen Antibody Combo (02/16/2022 9:44 AM CDT)ComponentValueRef RangeTest MethodAnalysis TimePerformed AtPathologist SignatureHIV Antigen Antibody Combo VgxuqthbjumAqepssclszl56/16/2022 4:53 PM CDTUM SPECIALTY CORE/PROT/ENDO Comment:HIV-1 p24 Ag & HIV-1/HIV-2 Ab Not DetectedSpecimen (Source)Anatomical Location / LateralityCollection Method / VolumeCollection TimeReceived Time BloodSTRUCTURE OF RIGHT UPPER LIMB / UnknownVenipuncture / Akmhigh3602/16/2022 9:44 AM CDT02/16/2022 9:44 AM CDT Narrative Authorizing ProviderResult TypeResult StatusGabriella WOODARD - BLOOD ORDERABLESFinal ResultPerforming OrganizationAddressCity/State/ZIP CodePhone Number [facility] [address] [facility], [address] [phone] * Hepatitis C Screen Reflex to HCV RNA Quant and Genotype (02/16/2022 9:44 AM CDT)ComponentValueRef RangeTest MethodAnalysis TimePerformed AtPathologist SignatureHepatitis C VijhsnsxUbgotyzcexsQkhqnisskyk67/16/2022 4:53 PM CDTUM SPECIALTY CORE/PROT/ENDOSpecimen (Source)Anatomical Location / Laterality Collection Method / VolumeCollection TimeReceived TimeBloodSTRUCTURE OF RIGHT UPPER LIMB / UnknownVenipuncture / Yrbccut4102/16/2022 9:44 AM CDT02/16/2022 9:44 AM CDT Narrative UM SPECIALTY CORE/PROT/ENDO - 02/16/2022 4:53 PM CDT Assay performance characteristics have not been established for newborns, infants, and children. Authorizing ProviderResult TypeResult StatusShelley Brandi Gallegos MDLAB - BLOOD ORDERABLESFinal ResultPerforming OrganizationAddressCity/State/ZIP CodePhone Number UM SPECIALTY CORE/PROT/ENDO UM Specialty Core/Prot/Endo [address] [facility], Room [address] [phone] * Pap imaged thin layer screen with HPV - recommended age 30 - 65 years (select HPV order below) (07/08/2018 11:34 AM MANUFACTURING MANAGEMENT ASSOCIATE)ComponentValueRef RangeTest Method Analysis TimePerformed AtPathologist SignaturePAPNILCOPATHCopath Report Patient Name: YUDY BERNARD MR#: [id number] Specimen #: [id number] Collected: 07/08/2018 Received: 07/09/2018 Reported: 07/10/2018 14:37 Ordering Phy(s): KATINA NEWBY For improved result formatting, select 'View Enhanced Report Format' under Linked Documents section. SPECIMEN/STAIN PROCESS: Pap imaged thin layer prep screening (Surepath, FocalPoint with guided screening) ? Pap-Cyto x 1, HPV ordered x 1 SOURCE: Cervical, endocervical Pap imaged thin layer prep screening (Surepath, FocalPoint with guided screening) SPECIMEN ADEQUACY: Satisfactory for evaluation. -Transformation zone component present. CYTOLOGIC INTERPRETATION: Negative for intraepithelial lesion or malignancy Electronically signed out by: GILMA Cid ??(ASCP) Processed and screened at [facility] CLINICAL HISTORY: LMP: 07/05/18 Papanicolaou Test Limitations: ??Cervical cytology is a screening test with limited sensitivity; regular screening is critical for cancer prevention; Pap tests are primarily effective for the diagnosis/prevention of squamous cell carcinoma, not adenocarcinomas or other cancers. TESTING LAB LOCATION: [address] ??[address] COLLECTION SITE: Client: ??[facility] Location: RIOB (R)COPATHSpecimen (Source)Anatomical Location / Laterality Collection Method / VolumeCollection TimeReceived TimeCytologic material (specimen)07/08/2018 11:34 AM CST07/09/2018 9:41 AM MANUFACTURING MANAGEMENT ASSOCIATE Narrative Authorizing ProviderResult TypeResult StatusKatina WOODARD - OPTIMAby CLINICAL SPECIMENFinal ResultPerforming OrganizationAddressCity/State/ZIP Code Phone Number COPATH * HPV High Risk Types DNA Cervical (07/08/2018 10:50 AM MANUFACTURING MANAGEMENT ASSOCIATE)ComponentValueRef RangeTest MethodAnalysis TimePerformed AtPathologist SignatureHPV Source XmcxKqgw20/05/2019 11:34 AM CSTFAIRW[facility]IAMSON [facility] HOSPITALHPV 16 DNANegative NEG^Pqtxsonm53/08/2019 2:07 PM [facility] HPV 18 DNANegativeNEG^Rschifuj20/08/2019 2:07 PM [facility]Other HR HPVNegativeNEG^Vjbmrteb10/08/2019 2:07 PM MANUFACTURING MANAGEMENT ASSOCIATE [facility]Final DiagnosisThis patient's sample is negative for HPV DNA.07/11/2018 2:07 PM CSTUPMC WESTERN MARYLANDComment: This test was developed and its performance characteristics determined by the [facility], Molecular Diagnostics Laboratory. It has not been cleared or approved by the FDA. The laboratory is regulated under CLIA as qualified to perform high-complexity testing. This test is used for clinical purposes. It should not be regarded as investigational or for research. (Note) METHODOLOGY: ??The Treasure nallely 4800 system uses automated extraction, simultaneous amplification of HPV (L1 region) and beta-globin, ?? followed by ??real time detection of fluorescent labeled HPV and beta globin using specific oligonucleotide probes . The test specifically identifies types HPV 16 DNA and HPV 18 DNA while concurrently detecting the rest of the high risk types (31, 33, 35, 39, 45, 51, 52, 56, 58, 59, 66 or 68). COMMENTS: ??This test is not intended for use as a screening device for women under age 30 with normal cervical cytology. ??Results should be correlated with cytologic and histologic findings. Close clinical followup is recommended. Specimen DescriptionCervical Cells07/08/2018 11:[address] PSYCHIATRIC CENTERComment:[id number] (Source)Anatomical Location / LateralityCollection Method / VolumeCollection TimeReceived TimeCervical Cells CERVIX UTERI STRUCTURE / Snooons2007/08/2018 10:50 AM CST07/08/2018 12:40 PM MANUFACTURING MANAGEMENT ASSOCIATE Narrative Authorizing ProviderResult TypeResult StatusKatina Newby MDLAB - BLOOD ORDERABLESFinal ResultPerforming OrganizationAddressCity/State/ZIP CodePhone Number [facility] [address] [place], [place] [phone] [place] [address] [address] [facility] [address] [place] [address] from Last 3 Months or Most Recently Relevant to Health Maintenance Insurance * Guarantor: Yudy Jones TypeRelation to PatientDate of BirthPhoneBilling HysicghZvzwjgrfekImji01/29/1981 [address] [place] [address] Care Teams Team MemberRelationshipSpecialtyStart DateEnd Sharron Denton APRN TAIL BOARD WORKER [address] [place] [address] [facility] - [facility]/27/24 Matt Boston MD [address] [place] [address] PhysicianClinical Cardiac Electrophysiology06/11/23 Katina Newby MD [address] [place] [address] Assigned OBGYN Provider09/24/23 Sharron Pereira APRN TAIL BOARD WORKER [address] [place] [address] Assigned PCP08/23/24
--- OUTSIDE RECORDS SUMMARY | 2025-05-27 18:24 | XMS_ITS | Encounter Summary ---
Author Organization [place] Address [facility] [place] [address] Care Team Providers Care Screw Supervisor Name Role Phone Matt Boston MD Unavailable Katina Newby MD Unavailable [phone] [facility] Health CenterSharron alvarado APRN PROTECTION SPECIALIST Primary Care Provi bernardino Sharron Pereira APRN PROTECTION SPECIALIST Unavailable + [phone] Reason for Visit * ReasonOnset DateCommentsFormulary Issue04/12/2025Slynd Encounter Details DateTypeDepartmentCare Team (Latest Contact Info)Jqxjpyxioit24/10/2025Telephone [facility] Women's [facility] [address] [facility] [address] [place] [phone] Katina Newby MD [address] [place], [place] [phone] Formulary Issue (Slynd) Social History Tobacco UseTypesPacks/DayYears UsedDateSmoking Tobacco: NeverPassive Smoke Exposure: NeverSmokeless Tobacco: NeverAlcohol UseStandard Drinks/WeekComments Not Currently0 (1 standard drink = 0.6 oz pure alcohol)Alcoholic Drinks/day: social drinkerSocial Connection and Isolation PanelAnswerDate RecordedFrequency of Communication with Friends and FamilyNot on file07/27/2024How often do you get together with friends or relatives?Twice a week07/27/2024ttends Baptist ServicesNot on file07/27/2024tive Member of Clubs or OrganizationsNot on file 07/27/2024ttends Club or Organization MeetingsNot on file07/27/2024Marital StatusNot on file07/27/2024UDIT-CAnswerDate RecordedQ1: How often do you have a drink containing alcohol?Monthly or less08/14/2023Q2: How many drinks containing alcohol do you have on a typical day when you are drinking?1 or Frequency of Binge DrinkingNot on file08/14/2023HQ-2AnswerDate RecordedPHQ-2 Zkcqe816Finintermountain healthcare [place] of Occupational Health - Occupational Stress QuestionnaireAnswerDate [...] in an abandoned building, in an overnight [place] health care facility, or couch-surfing.)Yes07/27/2024re you worried about losing your [...] ex-partner?No07/27/2024CommentsNoSex and Gender InformationValueDate RecordedSex Assigned at RamurBtyzys75/24/2019 9:44 AM CDTLegal CibWijqxe41/04/2012 4:46 AM CSTGender TkkmvufsHfscvp38/24/2019 9:44 AM CDTSexual HwdjymlxsjuVjnrivcb62/24/2019 9:44 AM CDTdocumented as of this encounter Miscellaneous Notes * Telephone Encounter - Agata Jacobson RN - 04/20/2025 9:33 AM CST Approved, mychart sent. Agata Wallis RN BSN [place] diamond die driller ONAL CONSULTANT * Telephone Encounter - Priyanka Villanueva RN - 04/15/2025 4:47 PM CST PA started in separate encounter. Priyanka Watts RN PROPERTY LOSS INSURANCE CLAIM ADJUSTER [place] ONAL CONSULTANT * Telephone Encounter - Katina Newby MD - 04/15/2025 4:19 PM CST Yes please. She cannot do oral estrogen containing oral contraceptive pills due to headache and norethindrone will not suppress the ovaries, so drosperinone is the only option for this. Katina Newby MD ONAL CONSULTANT * Telephone Encounter - Rae Calhoun RN - 04/12/2025 11:42 AM PERSONAL CONSULTANT [facility] pharmacy notified us that pts insurance does not cover Slynd 4 mg tabs that were rx'd on 04/08/25. Please let us know if you would like to proceed with a PA. Rae Cho RN [place] PROPERTY LOSS INSURANCE CLAIM ADJUSTER ONAL CONSULTANT documented in this encounter Plan of Treatment Not on file documented as of this encounter Visit Diagnoses Not on filedocumented in this encounter Additional Health Concerns AssessmentNoted TimePHQ-9 Depression Total Score: 8007/27/2024 7:08 AM PERSONAL CONSULTANT documented as of this encounter Care Teams Team MemberRelationshipSpecialtyStart DateEnd Date Sharron Pereira APRN PROTECTION SPECIALIST [address] [place] [address] PCP - GeneralFamily Medicine07/27/24 Matt Boston MD [address] [place] [address] PhysicianClinical Cardiac Electrophysiology06/11/23 Katina Newby MD [address] [place] [address] Assigned OBGYN Provider09/24/23 Sharron Pereira APRN PROTECTION SPECIALIST [address] [place] [address] Assigned PCP08/23/24documented as of this encounter
--- OUTSIDE RECORDS SUMMARY | 2025-05-27 18:24 | XMS_ITS | Encounter Summary ---
Author Organization [place] Address [facility] [place] [place] [address] Care Team Providers Care Subway Repair Supervisor Name Role Phone Matt Boston MD Unavailable Katina Newby MD Unavailable [phone] Sharron Pereira APRN RELAY TESTER Primary Care Provi bernardino Sharron Pereira APRN RELAY TESTER Unavailable [phone] Reason for Visit * ReasonOnset DateCommentsPrior Auth - Iifftzrjzk58/13/2025Slynd-APPROVED Encounter Details DateTypeDepartmentCare Team (Latest Contact Info)Hzkbakglegb09/13/2025Telephone [facility] Women's [address] [place] [address] Katina Newby MD [address] [place] [address] Prior Auth - Medication (Slynd-APPROVED) Social History Tobacco UseTypesPacks/DayYears UsedDateSmoking Tobacco: NeverPassive Smoke Exposure: NeverSmokeless Tobacco: NeverAlcohol UseStandard Drinks/WeekComments Not Currently0 (1 standard drink = 0.6 oz pure alcohol)Alcoholic Drinks/day: social drinkerSocial Connection and Isolation PanelAnswerDate RecordedFrequency of Communication with Friends and FamilyNot on file07/27/2024How often do you get together with friends or relatives?Twice a week07/27/2024ttends Jewish ServicesNot on file07/27/2024tive Member of Clubs or OrganizationsNot on file 07/27/2024ttends Club or Organization MeetingsNot on file07/27/2024Marital StatusNot on file07/27/2024UDIT-CAnswerDate RecordedQ1: How often do you have a drink containing alcohol?Monthly or less08/14/2023Q2: How many drinks containing alcohol do you have on a typical day when you are drinking?1 or Frequency of Binge DrinkingNot on file08/14/2023HQ-2AnswerDate RecordedPHQ-2 Croti154[place] of Occupational Health - Occupational Stress QuestionnaireAnswerDate [...] in an abandoned building, in an overnight senior care, or couch-surfing.)Yes07/27/2024re you worried about losing your [...] ex-partner?No07/27/2024CommentsNoSex and Gender InformationValueDate RecordedSex Assigned at XoqxqEisgrg91/24/2019 9:44 AM CDTLegal NytXbhmyj85/04/2012 4:46 AM CSTGender IpujpgxpCahtlu99/24/2019 9:44 AM CDTSexual UqbshnebhntOqznwzpn68/24/2019 9:44 AM CDTdocumented as of this encounter Miscellaneous Notes * Telephone Encounter - Brigitte Morris - 04/19/2025 9:46 AM CST Images from the original note were not included. Prior Authorization Approval Authorization Effective Date: 04/19/2025 Authorization Expiration Date: 04/19/2028 Medication: Slynd-APPROVED Reference #: Funding Options: On The [employer] Tech - Which Pharmacy is filling the prescription (Not needed for infusion/clinic administered): [facility] [id number] [place] [address] [address] [place] [address] Pharmacy Notified: Yes Patient Notified: Instructed pharmacy to notify patient when script is ready to pickling operator/ship. MOTIVE VEHICLE INSPECTOR * Telephone Encounter - Brigitte Morris - 04/19/2025 9:06 AM CST Images from the original note were not included. Retail Pharmacy Prior Authorization Team PA Initiation Medication: SLYND 4 MG PO TABS Insurance Company: [facility] Filling the Rx: [facility] #[id number] - [place], [place] - [address] [place] [address] Filling Pharmacy Filling Pharmacy Fax: Start Date: 04/19/2025 MOTIVE VEHICLE INSPECTOR * Telephone Encounter - Priyanka Villanueva RN - 04/15/2025 4:44 PM CST Prior Authorization Specialty Medication Request Medication/Dose: drospirenone (SLYND) 4 MG TABS tablet Diagnosis and ICD code (if different than what is on RX): Perimenopause [N95.1] - Primary New/renewal/insurance change PA/secondary ins. PA: Previously Tried and Failed: She cannot do oral estrogen containing oral contraceptive pills due tomigraine headache and norethindrone will not suppress the ovaries, so drosperinone is the only option for this. Insurance Primary: [facility] Pharmacy Information (if different than what is on RX) Name: [facility] Information Preferred routing pool for dept communication: Stefanie ugalde MOTIVE VEHICLE INSPECTOR documented in this encounter Plan of Treatment Not on file documented as of this encounter Visit Diagnoses Not on filedocumented in this encounter Additional Health Concerns AssessmentNoted TimePHQ-9 Depression Total Score: 8007/27/2024 7:08 AM AUTOMOTIVE VEHICLE INSPECTOR documented as of this encounter Care Teams Team MemberRelationshipSpecialtyStart DateEnd Date Sharron Pereira APRN CNP [address] [place] [address] PCP - GeneralFamily Medicine07/27/24 Matt Boston MD [address] [address] PhysicianClinical Cardiac Electrophysiology06/11/23 Katina Newby MD [address] [place] [address] Assigned OBGYN Provider09/24/23 Sharron Pereira APRN [facility] [address] [place] [address] Assigned PCP08/23/24documented as of this encounter
--- NOTE | 2025-05-27 18:27 | ED.GENADULT ---
HPI - General Adult General Time Seen by Provider: 18:28 Date Seen: 05/27/25 Chief complaint: Abdominal Pain Stated complaint: Abdominal Pain Time Seen by Provider: 05/27/25 18:27 Source: patient, RN notes reviewed and old records reviewed Mode of arrival: ambulatory Limitations: no limitations History of Present Illness HPI narrative: 44-year-old female who comes in today with abdominal pain. Patient has had intermittent right upper quadrant abdominal pain for the last 2 years. Over last couple days is been more consistent. Was quite severe earlier today but better now. Pain is in the middle of the upper abdomen and in the right side. Accompanied by nausea and vomiting, sometimes diarrhea. No fevers. Related Data Home Medications ?Medication ?Instructions ?Recorded ?Confirmed buspirone 10 mg tablet 20 mg PO BID 05/27/25 05/27/25 lamotrigine 150 mg tablet 150 mg PO BID 05/27/25 05/27/25 levothyroxine 100 mcg tablet 100 mcg PO DAILY 05/27/25 05/27/25 (Synthroid) liothyronine 5 mcg tablet 5 mcg PO BID 05/27/25 05/27/25 methocarbamol 750 mg tablet 750 mg PO 3XD 05/27/25 05/27/25 methylphenidate HCl 20 mg tablet 20 mg PO BID 05/27/25 05/27/25 spironolactone 100 mg tablet 100 mg PO DAILY 05/27/25 05/27/25 Allergies Allergy/AdvReac Type Severity Reaction Status Date / Time amoxicillin Allergy Severe Verified 05/27/25 18:29 Exam Narrative: Exam Narrative: General: Well-developed and well-nourished, no acute distress Head: Atraumatic and normocephalic Eyes: Pupils are equal reactive, extraocular motions intact, conjunctiva clear ENT: External nose and ears are normal, posterior pharynx without erythema or exudate Neck: No midline cervical tenderness, full spontaneous range of motion the neck, trachea midline, no adenopathy Heart: Regular rate and rhythm no murmurs or thrills Lungs: Clear to auscultation bilaterally without wheezes or crackles Abdomen: Soft, nontender, nondistended with active bowel sounds Musculoskeletal: No tenderness, deformity, or edema Neurologic: Awake, alert, and oriented x3, no gross focal neurologic deficits, cranial nerves intact as tested Psych: Mood and affect are appropriate Skin: No rashes Const: Vital Signs, click to edit/add: Vital Signs - 24 hr 05/27/25 18:24 Temperature 98 F Pulse Rate [Right Pulse Oximeter] 80 Respiratory Rate 18 Blood Pressure [Ri ght Upper Arm] 140/80 H Pulse Oximetry 95 Oxygen Delivery Me thod Room Air Course Course ED Course: Additional records reviewed: Reviewed most recent ED visit from April 08 which was for perimenopause and was started on hormone replacement therapy. Additional history from: None Care impacted by: Mental health Testing considered but not performed: See ED course Disposition: Discharge Patient seen examined, presents today with intermittent epigastric and right upper quadrant abdominal pain for the last couple of years, more consistent over the last several days. Currently quite comfortable. Symptoms are accompanied by nausea vomiting, occasionally diarrhea. Prior partial pancreatectomy and hysterectomy. On exam here, vital is stable, appears comfortable, minimal epigastric and right upper quadrant tenderness. Suspect symptomatic cholelithiasis. Labs ordered along with right upper quadrant ultrasound. Reevaluation(s) Time of Reevaluation #1: 19:40 Reevaluation #1: Labs intermittently interpreted by me with slightly elevated AST and ALT. Right upper quadrant ultrasound independently interpreted by me without wall thickening or stones. Time of Reevaluation #2: 20:28 Reevaluation #2: IMPRESSION: No acute or suspicious sonographic abnormality of the abdomen. Time of Reevaluation #3: 20:50 Reevaluation #3: Patient updated with findings and plan for discharge. We discussed next steps, she has had extensive evaluation including EGD, colonoscopy for this with no definite etiology found. No acute emergent intra-abdominal findings today, stable for discharge with outpatient follow-up. Vital Signs Vital signs: Initial Vital Signs Temperature 98 F 05/27/25 18:24 Temperature Source Temporal Artery Scan 05/27/25 18:24 Pulse Rate 80 05/27/25 18:24 Pulse Rhythm Regular 05/27/25 18:24 Pulse Strength 3+ Normal 05/27/25 18:24 Respiratory Rate 18 05/27/25 18:24 Blood Pressure 140/80 H 05/27/25 18:24 Blood Pressure Mean 100 05/27/25 18:24 Blood Pressure Position Sitting 05/27/25 18:24 Pulse Oximetry 95 05/27/25 18:24 Oxygen Delivery Method Room Air 05/27/25 18:24 Vital Signs Temperature 98 F 05/27/25 18:24 Pulse Rate 80 05/27/25 18:24 Respiratory Rate 18 05/27/25 18:24 Blood Pressure 140/80 H 05/27/25 18:24 Pulse Oximetry 95 05/27/25 18:24 Oxygen Delivery Method Room Air 05/27/25 18:24 Temperature 98 F 05/27/25 18:24 Pulse Rate 80 05/27/25 18:24 Respiratory Rate 18 05/27/25 18:24 Blood Pressure 140/80 H 05/27/25 18:24 Pulse Oximetry 95 05/27/25 18:24 Oxygen Delivery Method Room Air 05/27/25 18:24 Medical Decision Making Lab Data Labs: Lab Results 05/27/25 Range/Units 19:00 WBC 4.79 (4.50-11.00) K/uL RBC 4.22 (4.00-5.20) m/uL Hgb 12.8 (12.0-16.0) gm/dL Hct 39.6 (33.0-51.0) % MCV 94 (80-100) fL MCH 30 (26-34) pg MCHC 32 (32-36) gm/dL RDW Coeff of Sara 11.6 (11.5-15.5) % Plt Count 232 (140-440) K/uL Neut % (Auto) 60.1 (42.0-72.0) % Lymph % (Auto) 27.8 (20-44) % [place] % (Auto) 10.2 (0.0-11.0) % Eos % (Auto) 1.5 (0.0-7.0) % Baso % (Auto) 0.4 (0.0-3.0) % Neut # (Auto) 2.88 (1.7-7.0) K/uL Lymph # (Auto) 1.33 (0.90-2.90) K/uL [place] # (Auto) 0.50 (0.00-0.90) K/UL Eos # (Auto) 0.07 (0.00-0.50) K/uL Baso # (Auto) 0.02 (0.00-0.30) K/uL Abs Immat Gran (auto) 0.00 (0.00-0.30) K/uL Imm/Tot Granulo (auto) 0.0 % Diff Slide Review Acceptable Review (Acceptable) Sodium 137 (135-149) mmol/L Potassium 3.8 (3.6-5.1) mmol/L Chloride 99 (96-114) mmol/L Carbon Dioxide 29 (20-32) mmol/L Anion Gap 9 (7-15) mEq/L BUN 8 (5-24) mg/dL Creatinine 0.8 (0.5-1.5) mg/dL Estimated GFR 93 ml/min Glucose 95 (60-115) mg/dL Calcium 9.3 (8.4-10.6) mg/dL Total Bilirubin 0.2 (0.1-1.5) mg/dL Direct Bilirubin 0.2 (0.0-0.5) mg/dL AST 36 H (12-35) U/L ALT 51 H (4-35) U/L Alkaline Phosphatase 77 (40-150) U/L Total Protein 7.7 (6.0-8.3) g/dL Albumin 4.6 (3.3-5.0) g/dL Lipase 71 (23-300) U/L Discharge Plan Discharge Clinical Impression: Intermittent upper abdominal pain, Nausea and vomiting Patient Disposition: Home, Self-Care Condition: Stable Instructions: Acute Nausea and Vomiting (ED), Abdominal Pain (ED) Activity Level: No Restrictions Discharge Diet: Regular Prescriptions: No Action lamotrigine 150 mg tablet 150 mg PO BID methylphenidate HCl 20 mg tablet 20 mg PO BID spironolactone 100 mg tablet 100 mg PO DAILY liothyronine 5 mcg tablet 5 mcg PO BID levothyroxine [Synthroid] 100 mcg tablet 100 mcg PO DAILY methocarbamol 750 mg tablet 750 mg PO 3XD buspirone 10 mg tablet 20 mg PO BID Follow Up/Referrals: Provider,Not a Local [Primary Care Provider, Family Practice] Stand Alone Forms: Gamestaqth Info Instructions
--- NOTE | 2025-05-27 18:49 | CRLHL7_ITS ---
For Patients: As a result of the Century Cures Act, medical imaging exams and procedure reports are released immediately into your electronic medical record. You may view this report before your referring provider. If you have questions, please contact your health care provider. INDICATION: Right upper quadrant abdomen pain. TECHNIQUE: Ultrasound abdomen limited. Sonographic images of the right upper quadrant were obtained using ji-scale and color Doppler images. COMPARISON: None. FINDINGS: Liver: Normal in size and echotexture. Gallbladder: No stones or sludge. Normal wall thickness. No pericholecystic fluid. Common bile duct: 3 mm. Pancreas: Not visualized. Pancreatectomy by history. Right kidney: Normal in size. Normal echotexture and cortex. No suspicious masses, stones, or hydronephrosis. Vasculature: Proximal abdominal aorta: Normal in caliber. IVC: Patent. Main portal vein: Patent. Ascites: None visualized. IMPRESSION: No acute or suspicious sonographic abnormality of the abdomen. Dictated by Andriy Green MD @ 05/27/2025 7:55:36 PM (Electronically Signed)
--- OUTSIDE RECORDS SUMMARY | 2025-05-27 19:03 | XMS_ITS | CCD ---
Author Name Interface, [id number] lity Address [address] [place] [address] [facility] Address [facility] [address] [address] Reason for Visit Social History Date Name Value 01/30/2025 Sex Female
--- OUTSIDE RECORDS SUMMARY | 2025-05-27 19:04 | XMS_ITS | CCD ---
Author Name Interface, [id number] lity Address [address] [place] [address] [facility] Address [facility] [address] [address] Reason for Visit Social History Date Name Value 01/30/2025 Sex Female
[2025-05-27 19:08] LABS: Hematocrit* 39.6 % (33.0-51.0); Hemoglobin* 12.8 gm/dL (12.0-16.0); Immature Granulocytes Abs Auto 0.00 K/uL (0.00-0.30); Immature Granulocytes Pct Auto 0.0 %; Lymphocytes Absolute Auto 1.33 K/uL (0.90-2.90); Mean Corpuscular HGB Conc 32 gm/dL (32-36); Mean Corpuscular Hemoglobin 30 pg (26-34); Mean Corpuscular Volume 94 fL (80-100); RDW Coefficient of Variation % 11.6 % (11.5-15.5); Red Blood Count* 4.22 m/uL (4.00-5.20); White Blood Count* 4.79 K/uL (4.50-11.00)
[2025-05-27 19:22] LABS: Albumin* 4.6 g/dL (3.3-5.0); Chloride* 99 mmol/L (96-114); Potassium* 3.8 mmol/L (3.6-5.1); Sodium* 137 mmol/L (135-149)
[2025-05-27 19:24] LABS: Blood Urea Nitrogen* 8 mg/dL (5-24); Creatinine* 0.8 mg/dL (0.5-1.5); Estimated Glomerular Filt Rate 93 ml/min
[2025-05-27 19:25] LABS: Alanine Aminotransferase* 51 U/L (4-35); Alkaline Phosphatase* 77 U/L (40-150); Anion Gap 9 mEq/L (7-15); Aspartate Amino Transferase* 36 U/L (12-35); Bilirubin Direct* 0.2 mg/dL (0.0-0.5); Bilirubin Total* 0.2 mg/dL (0.1-1.5); Calcium* 9.3 mg/dL (8.4-10.6); Carbon Dioxide* 29 mmol/L (20-32); Glucose* 95 mg/dL (60-115); Total Protein* 7.7 g/dL (6.0-8.3)
[2025-05-27 19:43] LABS: Slide Review Reflex Yes
[2025-05-27 19:44] LABS: Slide Review Acceptable Review (Acceptable)
== END 2025-05-27 21:05 | disposition home or self-care (01) ==
PROVIDERS: Emergency Provider Family Medicine
DX: R10.11 Right upper quadrant pain (principal); R11.2 Nausea with vomiting, unspecified; R19.7 Diarrhea, unspecified
CPT/HCPCS: 36415; 76705; 80048; 80076; 83690; 85025; 99284